=== PATIENT | male | born 1950 | race Caucasian/White ===

== ENCOUNTER 2018-03-08 17:19 | Emergency (ER) | payer MEDICARE, BC ==
--- NOTE | 2018-03-08 17:48 | ER Document Report ---
ED Medical Screen (RME) - General Chief Complaint: Rectal Bleeding Stated Complaint: BLOOD IN URINE Time Seen by Provider: 03/08/18 17:40 Mode of Arrival: Ambulatory Information source: Patient Notes: 67-year-old male presents with complaints of rectal bleeding. Patient notes he has a history of Crohn's disease notes by the bleeding was noted today it was more bright red on his pants but notes dark red as well I have greeted and performed a rapid initial assessment of this patient. A comprehensive ED assessment and evaluation of the patient, analysis of test results and completion of the medical decision making process will be conducted by additional ED providers. PHYSICAL EXAMINATION: GENERAL: Well-appearing, well-nourished and in no acute distress. HEAD: Atraumatic, normocephalic. EYES: Pupils equal round extraocular movements intact, conjunctiva are normal. ENT: Nares patent NECK: Normal range of motion LUNGS: No respiratory distress Musculoskeletal: Normal range of motion NEUROLOGICAL: Normal speech, normal gait. PSYCH: Normal mood, normal affect. SKIN: Warm, Dry, normal turgor, no rashes or lesions noted. TRAVEL OUTSIDE OF THE [place] IN LAST 30 DAYS: No - Related Data Allergies/Adverse Reactions: Penicillins Allergy (Verified 03/08/18 17:20) Past Medical History - Social History Chew tobacco use (# tins/day): No Frequency of alcohol use: None Drug Abuse: Prescription drugs Renal/ Medical History: Denies: Hx Peritoneal Dialysis Physical Exam - Vital signs Vitals: Temp Pulse Resp BP Pulse Ox 97.9 F 98 18 131/70 H 93 03/08/18 17:25 03/08/18 17:25 03/08/18 17:25 03/08/18 17:25 03/08/18 17:25 Course - Vital Signs Vital signs: Temp Pulse Resp BP Pulse Ox 97.9 F 98 18 131/70 H 93 03/08/18 17:25 03/08/18 17:25 03/08/18 17:25 03/08/18 17:25 03/08/18 17:25
[2018-03-08 18:34] LABS: ABSOLUTE EOSINOPHILS # (AUTO) 0.2 10^3/uL (0.0-0.6); ABSOLUTE LYMPHOCYTES (AUTO) 1.3 10^3/uL (0.5-4.7); ABSOLUTE MONOCYTES (AUTO) 1.1 10^3/uL (0.1-1.4); ABSOLUTE NEUT (AUTO) 8.6 10^3/uL (1.7-8.2); BASOPHILS % (AUTO) 0.3 % (0-2); EOSINOPHILS % (AUTO) 1.9 % (0-6); HEMATOCRIT 41.7 % (37.9-51.0); HEMOGLOBIN 14.1 g/dL (13.5-17.0); LYMPHOCYTES % (AUTO) 11.4 % (13-45); MEAN CORPUSCULAR HEMOGLOBIN 31.9 pg (27.0-33.4); MEAN CORPUSCULAR HGB CONC 33.8 g/dL (32.0-36.0); MEAN CORPUSCULAR VOLUME 94 fl (80-97); MONOCYTES % (AUTO) 9.4 % (3-13); PLATELET COUNT 207 10^3/uL (150-450); RED BLOOD COUNT 4.42 10^6/uL (4.35-5.55); RED CELL DISTRIBUTION WIDTH 13.8 % (11.5-14.0); TOTAL CELLS COUNTED % (AUTO) 100 %; WHITE BLOOD COUNT 11.2 10^3/uL (4.0-10.5)
[2018-03-08 18:49] LABS: ALANINE AMINOTRANSFERASE 48 U/L (21-72); ALBUMIN 3.7 g/dL (3.5-5.0); ALKALINE PHOSPHATASE 66 U/L (38-126); ANION GAP 11 (5-19); ASPARTATE AMINO TRANSFERASE 48 U/L (17-59); BILIRUBIN,DIRECT 0.3 mg/dL (0.0-0.4); BILIRUBIN,TOTAL 0.5 mg/dL (0.2-1.3); BLOOD UREA NITROGEN 25 mg/dL (7-20); CALCIUM 9.8 mg/dL (8.4-10.2); CARBON DIOXIDE 29 mmol/L (22-30); CHLORIDE 103 mmol/L (98-107); GLUCOSE 100 mg/dL (75-110); SODIUM 142.6 mmol/L (137-145); TOTAL PROTEIN 6.7 g/dL (6.3-8.2)
--- NOTE | 2018-03-08 19:03 | ER Document Report ---
ED General - General Chief Complaint: Rectal Bleeding Stated Complaint: BLOOD IN URINE Time Seen by Provider: 03/08/18 17:40 Mode of Arrival: Ambulatory Notes: Patient is a 67-year-old male with a past medical history of hypertension, hyperlipidemia, and a reported history of Crohn's disease although not on any active therapy, uncertain of his last colonoscopy who presents with concerns of a bright red bloody bowel movement. Patient states that he had blood come out of his rectum and apparently saturated through his underwear into his pants. He states that this happened earlier today and has not recurred since that time. He states he has had rectal bleeding or currently in the past but is uncertain whether or not he has had such a severe case in the past. He denies any form of anticoagulation use. He states he is currently living here after moving but has not yet established a local primary doctor or GI physician. He denies any abdominal pain, ongoing rectal bleeding, nausea, vomiting, hematemesis, lightheadedness or syncope. He has not noted that anything seemed to improve or worsen his symptoms and they are present. At the time of my exam he denies any ongoing symptoms and states he overall feels quite well. TRAVEL OUTSIDE OF THE [place] IN LAST 30 DAYS: No - Related Data Allergies/Adverse Reactions: Penicillins Allergy (Verified 03/08/18 17:20) Past Medical History - General Information source: Patient - Social History Smoking Status: Former Smoker Chew tobacco use (# tins/day): No Frequency of alcohol use: None Drug Abuse: Prescription drugs Lives with: Alone Family History: Reviewed & Not Pertinent Patient has suicidal ideation: No Patient has homicidal ideation: No Renal/ Medical History: Denies: Hx Peritoneal Dialysis Review of Systems - Review of Systems Notes: Constitutional: Negative for fever. HENT: Negative for sore throat. Eyes: Negative for visual changes. Cardiovascular: Negative for chest pain. Respiratory: Negative for shortness of breath. Gastrointestinal: Negative for abdominal pain, vomiting or diarrhea. Positive for rectal bleeding Genitourinary: Negative for dysuria. Musculoskeletal: Negative for back pain. Skin: Negative for rash. Neurological: Negative for headaches, weakness or numbness. 10 point ROS negative except as marked above and in HPI. Physical Exam - Vital signs Vitals: Temp Pulse Resp BP Pulse Ox 97.9 F 98 18 131/70 H 93 03/08/18 17:25 03/08/18 17:25 03/08/18 17:25 03/08/18 17:25 03/08/18 17:25 Interpretation: Normal Notes: PHYSICAL EXAMINATION: GENERAL: Well-appearing, well-nourished and in no acute distress. HEAD: Atraumatic, normocephalic. EYES: Pupils equal round and reactive to light, extraocular movements intact, sclera anicteric, conjunctiva are normal. ENT: nares patent, oropharynx clear without exudates. Moist mucous membranes. NECK: Normal range of motion, supple without lymphadenopathy LUNGS: Breath sounds clear to auscultation bilaterally and equal. No wheezes rales or rhonchi. HEART: Regular rate and rhythm without murmurs ABDOMEN: Soft, nontender, normoactive bowel sounds. No guarding, no rebound. No masses appreciated. Rectal: No gross blood, trace amount of brown stool EXTREMITIES: Normal range of motion, no pitting or edema. No cyanosis. NEUROLOGICAL: No focal neurological deficits. Moves all extremities spontaneously and on command. PSYCH: Normal mood, normal affect. SKIN: Warm, Dry, normal turgor, no rashes or lesions noted. Course - Re-evaluation Re-evalutation: 03/08/18 18:58 Patient presents with a complaint of having a bloody bowel movement earlier today stating there was blood staining the back of his blue jeans. He reports that he has a possible history of Crohn's disease but also states that he is uncertain of the last time he was seen by a GI doctor, does not take any medications for Crohn's disease, and is uncertain of the last time he had a colonoscopy. Patient is otherwise very well in appearance, normal heart rate, no evidence of hypotension. Borderline pulse oximetry although the patient does smoke. On examination the patient has no abdominal tenderness to any quadrant. He denies any abdominal pain. Rectal examination shows no evidence of blood. There is a small amount of brown stool on the tip of my finger but no evidence of melena or hematochezia. Laboratories show a normal hemoglobin without any evidence of anemia or acute bleeding. At this time point I do not suspect that the patient has a life-threatening GI bleed based on normal labs, vitals and absence of any blood on rectal examination. Moreover the patient notes that he has not had a recurrent bloody bowel movement since this morning. He does not take any form of anticoagulation. I have encouraged the patient to follow-up closely with his primary care physician and GI doctor for a colonoscopy ideally within the next 48 hours. We have reviewed that if he is to have any recurrent bloody bowel movements he needs to return to the emergency department immediately. We have also reviewed the signs that would indicate worsening bleeding even if you are not to be having additional bloody bowel movements. At this time will discharge with return precautions and follow -up recommendations. Verbal discharge instructions given a the bedside and opportunity for questions given. Medication warnings reviewed. Patient is in agreement with this plan and has verbalized understanding of return precautions and the need for primary care follow-up in the next 24-72 hours. - Vital Signs Vital signs: Temp Pulse Resp BP Pulse Ox 98.2 F 72 20 116/76 95 03/08/18 19:15 03/08/18 19:15 03/08/18 19:15 03/08/18 19:15 03/08/18 19:15 - Laboratory Result Diagrams: 03/08/18 18:03 03/08/18 18:03 Laboratory results interpreted by me: 03/08/18 03/08/18 18:03 18:03 WBC 11.2 H Lymphocytes % 11.4 L Absolute Neutrophils 8.6 H BUN 25 H Creatinine 1.29 H Est GFR (Non-Af Amer) 55 L Discharge - Discharge Clinical Impression: Blood in stool, History of Crohn's disease Condition: Good Disposition: HOME, SELF-CARE Additional Instructions: Your seen today for possible blood in your stool. Currently we do not see any blood in you stool on rectal examination. Your blood counts are normal. Your vitals are also reassuring. You need to follow-up with your general doctor and GI physician within the next 1-2 days to schedule a colonoscopy and have your labs reassessed. You should return to the emergency department immediately if you have recurrence of any additional bloody bowel movements, pass out or become lightheaded, vomit blood, have black stool, develop a fever of greater than 100.4F, developed severe abdominal pain, or have any other symptoms that are worrisome to you.
[2018-03-08 19:23] VITALS: BP 116/76
== END 2018-03-08 19:20 | disposition home or self-care (01) ==
LOC: ER 17:19
DX: K62.5 Hemorrhage of anus and rectum (principal); K50.90 Crohn's disease, unspecified, without complications; I10 Essential (primary) hypertension; E78.5 Hyperlipidemia, unspecified; Z87.891 Personal history of nicotine dependence
CPT/HCPCS: 36415; 80053; 85025; 86850; 86900; 86901; 99283

== ENCOUNTER 2018-03-10 10:23 | Emergency (ER) | payer MEDICARE, BC ==
--- NOTE | 2018-03-10 11:10 | ER Document Report ---
ED Medical Screen (RME) - General Chief Complaint: Bloody Stools Stated Complaint: BLOOD IN STOOL Time Seen by Provider: 03/10/18 11:04 Mode of Arrival: Ambulatory Information source: Patient Notes: 67-year-old male who was just seen recently for rectal bleeding presents with continued rectal bleeding. Appears patient was discharged with follow-up as not been able to get GI since the weekend Patient notes he had 2 episodes of rectal bleeding yesterday and has abdominal pain no vomiting I have greeted and performed a rapid initial assessment of this patient. A comprehensive ED assessment and evaluation of the patient, analysis of test results and completion of the medical decision making process will be conducted by additional ED providers. PHYSICAL EXAMINATION: GENERAL: Well-appearing, well-nourished and in no acute distress. HEAD: Atraumatic, normocephalic. EYES: Pupils equal round extraocular movements intact, conjunctiva are normal. ENT: Nares patent NECK: Normal range of motion LUNGS: No respiratory distress Musculoskeletal: Normal range of motion NEUROLOGICAL: Normal speech, normal gait. PSYCH: Normal mood, normal affect. SKIN: Warm, Dry, normal turgor, no rashes or lesions noted. TRAVEL OUTSIDE OF THE [place] IN LAST 30 DAYS: No - Related Data Allergies/Adverse Reactions: Penicillins Allergy (Verified 03/08/18 17:20) Past Medical History Renal/ Medical History: Denies: Hx Peritoneal Dialysis Physical Exam - Vital signs Vitals: Temp Pulse Resp BP Pulse Ox 97.9 F 84 18 135/65 H 95 03/10/18 10:34 03/10/18 10:34 03/10/18 10:34 03/10/18 10:34 03/10/18 10:34 Course - Vital Signs Vital signs: Temp Pulse Resp BP Pulse Ox 97.9 F 84 18 135/65 H 95 03/10/18 10:34 03/10/18 10:34 03/10/18 10:34 03/10/18 10:34 03/10/18 10:34
[2018-03-10 11:57] LABS: ABSOLUTE EOSINOPHILS # (AUTO) 0.2 10^3/uL (0.0-0.6); ABSOLUTE LYMPHOCYTES (AUTO) 1.4 10^3/uL (0.5-4.7); ABSOLUTE MONOCYTES (AUTO) 0.9 10^3/uL (0.1-1.4); ABSOLUTE NEUT (AUTO) 5.8 10^3/uL (1.7-8.2); BASOPHILS % (AUTO) 0.5 % (0-2); EOSINOPHILS % (AUTO) 2.5 % (0-6); HEMATOCRIT 41.8 % (37.9-51.0); HEMOGLOBIN 14.6 g/dL (13.5-17.0); LYMPHOCYTES % (AUTO) 16.8 % (13-45); MEAN CORPUSCULAR HEMOGLOBIN 32.9 pg (27.0-33.4); MEAN CORPUSCULAR VOLUME 94 fl (80-97); MONOCYTES % (AUTO) 11.1 % (3-13); PLATELET COUNT 231 10^3/uL (150-450); RED BLOOD COUNT 4.44 10^6/uL (4.35-5.55); RED CELL DISTRIBUTION WIDTH 13.8 % (11.5-14.0); SEGMENTED NEUTROPHILS % (AUTO) 69.1 % (42-78); TOTAL CELLS COUNTED % (AUTO) 100 %; WHITE BLOOD COUNT 8.5 10^3/uL (4.0-10.5)
[2018-03-10 12:15] LABS: ALANINE AMINOTRANSFERASE 43 U/L (21-72); ALBUMIN 3.5 g/dL (3.5-5.0); ALKALINE PHOSPHATASE 66 U/L (38-126); ANION GAP 12 (5-19); ASPARTATE AMINO TRANSFERASE 38 U/L (17-59); BILIRUBIN,DIRECT 0.2 mg/dL (0.0-0.4); BILIRUBIN,TOTAL 0.2 mg/dL (0.2-1.3); BLOOD UREA NITROGEN 30 mg/dL (7-20); CALCIUM 9.8 mg/dL (8.4-10.2); CARBON DIOXIDE 27 mmol/L (22-30); CHLORIDE 103 mmol/L (98-107); GLUCOSE 92 mg/dL (75-110); POTASSIUM 4.1 mmol/L (3.6-5.0); SODIUM 142.1 mmol/L (137-145); TOTAL PROTEIN 6.6 g/dL (6.3-8.2)
--- NOTE | 2018-03-10 13:32 | ER Document Report ---
ED General - General Chief Complaint: Bloody Stools Stated Complaint: BLOOD IN STOOL Time Seen by Provider: 03/10/18 11:04 Mode of Arrival: Ambulatory TRAVEL OUTSIDE OF THE [place] IN LAST 30 DAYS: No - HPI Patient complains to provider of: Blood in stool Notes: Patient coming in for second time in the last few days for bright red blood per rectum. Upon questioning patient patient seems to be of lower IQ and his story is somewhat convoluted stating that upon his last visit he had bright red blood per rectum 24 hours prior states that today he did have a bloody bowel movement night before this arrival however came to the ER from [place] to be checked out states he has a history of Crohn's disease however is never been confirmed by GI. Patient is on medication for seizure disorder he is already on Protonix to as well. Patient denies any change his diet. Patient denies being able to follow-up with a GI physician or his regular physician as that they are in [place]. Patient denies having a physician here in [place]. Otherwise resting comfortably upon my evaluation denies fever chills nausea vomiting diarrhea denies blood thinning medication denies excessive Motrin use - Related Data Allergies/Adverse Reactions: Penicillins Allergy (Verified 03/08/18 17:20) Past Medical History - General Information source: Patient - Social History Smoking Status: Former Smoker Chew tobacco use (# tins/day): No Frequency of alcohol use: None Drug Abuse: None Family History: Reviewed & Not Pertinent Patient has suicidal ideation: No Patient has homicidal ideation: No - Past Medical History Cardiac Medical History: Reports: Hx Congestive Heart Failure, Hx Hypertension Neurological Medical History: Reports: Hx Seizures Renal/ Medical History: Denies: Hx Peritoneal Dialysis Physical Exam - Vital signs Vitals: Temp Pulse Resp BP Pulse Ox 97.9 F 84 18 135/65 H 95 03/10/18 10:34 03/10/18 10:34 03/10/18 10:34 03/10/18 10:34 03/10/18 10:34 Interpretation: Normal - General General appearance: Appears well, Alert - HEENT Head: Normocephalic, Atraumatic Eyes: Normal Pupils: PERRL - Respiratory Respiratory status: No respiratory distress Chest status: Nontender Breath sounds: Normal Chest palpation: Normal - Cardiovascular Rhythm: Regular Heart sounds: Normal auscultation Murmur: No - Abdominal Inspection: Normal Distension: No distension Bowel sounds: Normal Tenderness: Nontender Organomegaly: No organomegaly - Rectal Notes: Light brown stool on rectal examination no signs of gross blood - Back Back: Normal, Nontender - Extremities General upper extremity: Normal inspection, Nontender, Normal color, Normal ROM , Normal temperature General lower extremity: Normal inspection, Nontender, Normal color, Normal ROM , Normal temperature, Normal weight bearing. No: Ladi's sign - Neurological Neuro grossly intact: Yes Cognition: Normal Orientation: AAOx4 [place] Coma Scale Eye Opening: Spontaneous [place] Coma Scale Verbal: Oriented Jess Coma Scale Motor: Obeys Commands Jess Coma Scale Total: 15 Speech: Normal Motor strength normal: LUE, RUE, LLE, RLE Sensory: Normal - Psychological Associated symptoms: Normal affect, Normal mood - Skin Skin Temperature: Warm Skin Moisture: Dry Skin Color: Normal Course - Re-evaluation Re-evalutation: 03/10/18 15:15 Patient's hemoglobin has increased since his last visit. Patient has light brown stool on rectal examination no hemorrhoids were seen or palpated. At this time patient has no signs of life-threatening bleeds. Patient is not on any anticoagulant medication. I did encourage patient to follow-up with his doctor will also give the patient information to our social science research assistant to call him tomorrow to to establish a follow-up here in [place]. Patient states understanding patient is to continue all of his home medications avoiding NSAIDs and will be discharged home - Vital Signs Vital signs: Temp Pulse Resp BP Pulse Ox 97.7 F 77 16 110/70 98 03/10/18 13:48 03/10/18 13:48 03/10/18 13:48 03/10/18 13:48 03/10/18 13:48 - Laboratory Result Diagrams: 03/10/18 11:24 03/10/18 11:24 Laboratory results interpreted by me: 03/10/18 11:24 BUN 30 H Est GFR (Non-Af Amer) 58 L Discharge - Discharge Clinical Impression: History of Crohn's disease, Blood in stool per history Condition: Good Disposition: HOME, SELF-CARE Instructions: Gastroenterology, Rectal Bleeding, Unclear Cause ([facility]) Additional Instructions: Your laboratory studies today show that your hemoglobin has increased since last time you have been here in the ER. Your rectal exam today did not reveal any signs of blood. Her vital signs are otherwise stable. It is very important that you follow-up with a GI specialist. I would highly recommend to call your physician or wait for her phone call tomorrow is that I will have our social science research assistant contact you during regular business hours to see about establishing care here in [facility] and also establish you follow- up with a plaster model and mold maker or GI specialist. Please continue all your home medications as prescribed. Please avoid any anti-inflammatory medication such as Motrin or Naprosyn Aleve. Please avoid any excessive alcohol intake. Return to ER for any concerns
[2018-03-10 13:50] VITALS: BP 110/70
== END 2018-03-10 13:50 | disposition home or self-care (01) ==
LOC: ER 10:23
DX: K50.90 Crohn's disease, unspecified, without complications (principal); K92.1 Melena; I50.9 Heart failure, unspecified; I11.0 Hypertensive heart disease with heart failure; Z88.0 Allergy status to penicillin
CPT/HCPCS: 36415; 80053; 85025; 99283

== ENCOUNTER 2019-08-04 11:39 | Observation (INO) | payer MEDICARE, BC ==
--- NOTE | 2019-08-04 12:22 | ER Document Report ---
ED Medical Screen (RME) - General Stated Complaint: RIGHT FOOT PAIN Time Seen by Provider: 08/04/19 12:17 Mode of Arrival: Medic Information source: Patient Notes: Patient presents with right foot pain swelling and erythema for the past 2 days. Patient states that he recently was [place] the beach although denies knowingly cutting his foot. Patient denies any fever. hx: Hypertension, CVA, seizures I have greeted and performed a rapid initial assessment of this patient. A comprehensive ED assessment and evaluation of the patient, analysis of test results and completion of the medical decision making process will be conducted by additional ED providers. TRAVEL OUTSIDE OF THE [place] IN LAST 30 DAYS: No - Related Data Allergies/Adverse Reactions: Penicillins Allergy (Verified 03/08/18 17:20) Past Medical History - Past Medical History Cardiac Medical History: Reports: Hx Congestive Heart Failure, Hx Hypertension Neurological Medical History: Reports: Hx Seizures Renal/ Medical History: Denies: Hx Peritoneal Dialysis Physical Exam - General Notes: Right bartender server, erythematous swollen, right second toe more swollen and erythematous than other toes.
[2019-08-04 12:40] LABS: ABSOLUTE BASOPHILS # (AUTO) 0.1 10^3/uL (0.0-0.2); ABSOLUTE MONOCYTES (AUTO) 1.8 10^3/uL (0.1-1.4); BASOPHILS % (AUTO) 0.4 % (0-2); EOSINOPHILS % (AUTO) 0.4 % (0-6); HEMATOCRIT 50.9 % (37.9-51.0); LYMPHOCYTES % (AUTO) 14.3 % (13-45); MEAN CORPUSCULAR HEMOGLOBIN 32.1 pg (27.0-33.4); MEAN CORPUSCULAR HGB CONC 33.4 g/dL (32.0-36.0); MEAN CORPUSCULAR VOLUME 96 fl (80-97); MONOCYTES % (AUTO) 12.8 % (3-13); PLATELET COUNT 276 10^3/uL (150-450); RED BLOOD COUNT 5.31 10^6/uL (4.35-5.55); RED CELL DISTRIBUTION WIDTH 13.7 % (11.5-14.0); SEGMENTED NEUTROPHILS % (AUTO) 72.1 % (42-78); TOTAL CELLS COUNTED % (AUTO) 100 %; WHITE BLOOD COUNT 13.8 10^3/uL (4.0-10.5)
[2019-08-04 13:11] LABS: ALBUMIN 4.1 g/dL (3.5-5.0); ALKALINE PHOSPHATASE 65 U/L (38-126); ANION GAP 13 (5-19); ASPARTATE AMINO TRANSFERASE 43 U/L (17-59); BILIRUBIN,DIRECT 0.2 mg/dL (0.0-0.4); BILIRUBIN,TOTAL 1.1 mg/dL (0.2-1.3); BLOOD UREA NITROGEN 23 mg/dL (7-20); CALCIUM 10.1 mg/dL (8.4-10.2); CARBON DIOXIDE 29 mmol/L (22-30); CHLORIDE 100 mmol/L (98-107); GLUCOSE 99 mg/dL (75-110); POTASSIUM 4.5 mmol/L (3.6-5.0); TOTAL PROTEIN 7.8 g/dL (6.3-8.2); URIC ACID 8.8 mg/dL (3.5-8.5)
--- NOTE | 2019-08-04 13:19 | RADIOLOGY REPORT (SQ) ---
EXAM DESCRIPTION: FOOT RIGHT COMPLETE COMPLETED DATE/TIME: 08/04/2019 1:03 pm REASON FOR STUDY: r foot pain/swelling COMPARISON: None. NUMBER OF VIEWS: Three views. TECHNIQUE: AP, lateral and oblique radiographic images acquired of the right foot. LIMITATIONS: None. FINDINGS: MINERALIZATION: Normal. BONES: No acute fracture or dislocation. JOINTS: The tarsometatarsal alignment is preserved. SOFT TISSUES: There is diffuse soft tissue swelling along the dorsal aspect of the midfoot. There is a thin 4.5 mm radiopaque foreign body that projects dorsal to the 3rd proximal phalanx. OTHER: No other significant finding. IMPRESSION: 1. Thin 4.5 mm radiopaque foreign body that projects dorsal to the 3rd proximal phalanx. 2. Soft tissue swelling along the dorsal aspect of the midfoot. COMMENT: This report was called to FREDI DAN NP at13:11 on 08/04/2019. TECHNICAL DOCUMENTATION: JOB ID: [id number] [employer]- All Rights Reserved Reading location - IP/workstation name: [email or web address]
[2019-08-04] MEDS ORDERED: CEFEPIME INJ 1 GM VIAL IV ONE (17:18)
[2019-08-04] MEDS ORDERED: NORMAL SALINE IV ONE (17:18)
[2019-08-04] MEDS ORDERED: VANCOMYCIN HCL INJ 1000 MG VIAL IV ONE (17:18)
--- NOTE | 2019-08-04 17:27 | ER Document Report ---
ED Extremity Problem, Lower - General Chief Complaint: Foot Pain Stated Complaint: RIGHT FOOT PAIN Time Seen by Provider: 08/04/19 12:17 Mode of Arrival: Medic Information source: Patient TRAVEL OUTSIDE OF THE [place] IN LAST 30 DAYS: No - HPI Notes: Patient is brought in due to right foot pain. He states for 2 to 3 days his right foot has been very tender. He states the pain radiates up the right leg. It is constant. It is worse with movement and better with rest. It is moderate to severe in intensity. It is a burning sensation. He denies any known injury to this foot or leg. He states he does walk on the beach barefoot every day however. Patient is somewhat of a difficult historian. He denies any other injuries or problems. He denies any nausea vomiting diarrhea. No fevers. - Related Data Allergies/Adverse Reactions: Penicillins Allergy (Verified 03/08/18 17:20) Past Medical History - General Information source: Patient - Social History Smoking Status: Never Smoker Frequency of alcohol use: None Drug Abuse: None Family History: Reviewed & Not Pertinent Patient has suicidal ideation: No Patient has homicidal ideation: No - Past Medical History Cardiac Medical History: Reports: Hx Congestive Heart Failure, Hx Hypertension Neurological Medical History: Reports: Hx Seizures Renal/ Medical History: Denies: Hx Peritoneal Dialysis Review of Systems - Review of Systems Constitutional: denies: Chills, Fever Cardiovascular: denies: Chest pain, Palpitations Respiratory: denies: Cough, Short of breath -: Yes All other systems reviewed and negative Physical Exam - Vital signs Vitals: Temp Pulse Resp BP Pulse Ox 97.7 F 85 17 126/78 H 98 08/04/19 14:08 08/04/19 14:08 08/04/19 14:08 08/04/19 14:08 08/04/19 14:08 Interpretation: Normal - General General appearance: Appears well, Alert - HEENT Head: Normocephalic, Atraumatic Eyes: Normal Pupils: PERRL - Respiratory Respiratory status: No respiratory distress Chest status: Nontender Breath sounds: Normal Chest palpation: Normal - Cardiovascular Rhythm: Regular Heart sounds: Normal auscultation Murmur: No - Abdominal Inspection: Normal Distension: No distension Bowel sounds: Normal Tenderness: Nontender Organomegaly: No organomegaly - Back Back: Normal, Nontender - Extremities General upper extremity: Normal inspection, Nontender, Normal color, Normal ROM, Normal temperature General lower extremity: Other - Left lower extremity is unremarkable. Right lower extremity shows significant swelling erythema and some mild induration from approximately just superior to the ankle all the way through the toes. Specifically the right second toe is more erythematous and swollen than the other toes. However the erythema and swelling extends diffusely about the foot. The entire foot is tender. Patient's greatest degree of tenderness though seems to be at the base of the second and third toes. There is no wounds appreciated on inspection. - Neurological Neuro grossly intact: Yes Cognition: Normal Orientation: AAOx4 [place] Coma Scale Eye Opening: Spontaneous [place] Coma Scale Verbal: Oriented Jess Coma Scale Motor: Obeys Commands Jess Coma Scale Total: 15 Speech: Normal Motor strength normal: LUE, RUE, LLE, RLE Sensory: Normal - Psychological Associated symptoms: Normal affect, Normal mood - Skin Skin Temperature: Warm Skin Moisture: Dry Skin Color: Normal Course - Re-evaluation Re-evalutation: 08/04/19 17:25 Patient presents with an obvious cellulitic right foot. He does have a foreign body seen on x-ray. There is no obvious injury. This foreign body is not going to be amenable to removal in the emergency department. This is because there is no overlying wound, the foreign body is small, and it appears to be located deep within the tissues. I have spoken to the hospitalist who will admit the patient. Have also spoken to the surgeon who plans on taking the patient to the operating room. Patient states that he last ate at approximately 6 AM this morning. - Vital Signs Vital signs: Temp Pulse Resp BP Pulse Ox 97.7 F 85 17 126/78 H 98 08/04/19 14:08 08/04/19 14:08 08/04/19 14:08 08/04/19 14:08 08/04/19 14:08 - Laboratory Result Diagrams: 08/04/19 11:15 08/04/19 11:15 Laboratory results interpreted by me: 08/04/19 08/04/19 11:15 11:15 WBC 13.8 H Absolute Neuts (auto) 10.0 H Absolute Monos (auto) 1.8 H BUN 23 H Creatinine 1.37 H Est GFR ([facility]DRD) Non-Af 52 L Uric Acid 8.8 H - Diagnostic Test Radiology reviewed: Image reviewed, Reports reviewed Discharge - Discharge Clinical Impression: Cellulitis of right foot Foreign body in right foot Qualifiers: Encounter type: initial encounter Qualified Code(s): S90.851A - Superficial foreign body, right foot, initial encounter Condition: Stable Disposition: ADMITTED INPATIENT Admitting Provider: Yee (Hospitalist) Unit Admitted: Medical Floor
[2019-08-04 17:37] LABS: INTERNATIONAL RATION (INR) 0.99; PROTHROMBIN TIME 13.1 SEC (11.4-15.4)
--- NOTE | 2019-08-04 17:55 | PDOC H&P ---
History of Present Illness Admission Date/PCP: 08/04/19 17:33 Patient complains of: right leg swelling History of Present Illness: SHARAD EVANS is a 68 year old male with a past medical history of hypertension, seizure disorder, Crohn's disease not on therapy, hyperlipidemia, and HERMAN on CPAP who presented with right leg and right foot swelling. Patient says that he woke up 3 days ago and noticed swelling and redness on his right foot. He says that this has progressed and he has noted that his right leg is slightly more swollen than his left. He complains of minimal tenderness on the right foot. He does report that he has noticed the erythema on the d istal part of the right foot is more prominent in the past 2 days. He denies fever or chills. Foot x-ray in the ER shows a retained foreign body on the right foot. Surgery was consulted in the ER. No open wounds or lesions noted. Patient denies any recent trauma or insect bite or instrumentation on the right foot. Past Medical History Cardiac Medical History: Reports: Congestive Heart Failure, Hypertension Neurological Medical History: Reports: Seizures Social History Smoking Status: Never Smoker Family History Family History: Reviewed & Not Pertinent Parental Family History Reviewed: Yes - No premature CAD Children Family History Reviewed: No Sibling(s) Family History Reviewed.: No Medication/Allergy Allergies/Adverse Reactions: Penicillins Allergy (Verified 03/08/18 17:20) Review of Systems All systems: reviewed and no additional remarkable complaints except as stated - As mentioned in HPI Physical Exam Vital Signs: Temp Pulse Resp BP Pulse Ox 97.7 F 85 17 126/78 H 98 08/04/19 14:08 08/04/19 14:08 08/04/19 14:08 08/04/19 14:08 08/04/19 14:08 Intake & Output 08/03/19 08/04/19 08/05/19 06:59 06:59 06:59 Weight 201 lb General appearance: PRESENT: no acute distress, well-developed, well-nourished Head exam: PRESENT: atraumatic, normocephalic Eye exam: PRESENT: conjunctiva pink, EOMI, PERRLA. ABSENT: scleral icterus Ear exam: PRESENT: normal external ear exam Mouth exam: PRESENT: moist, tongue midline Neck exam: ABSENT: carotid bruit, JVD, lymphadenopathy, thyromegaly Respiratory exam: PRESENT: clear to auscultation ron. ABSENT: rales, rhonchi, wheezes Cardiovascular exam: PRESENT: RRR. ABSENT: diastolic murmur, rubs, systolic murmur Pulses: PRESENT: normal dorsalis pedis pul GI/Abdominal exam: PRESENT: normal bowel sounds, soft. ABSENT: distended, guarding, mass, organolmegaly, rebound, tenderness Rectal exam: PRESENT: deferred Extremities exam: PRESENT: other - There is some mild tenderness on the distal part of the right foot, right leg is also more swollen than the left Neurological exam: PRESENT: alert, awake, oriented to person, oriented to place, oriented to time, oriented to situation, CN II-XII grossly intact. ABSENT: motor sensory deficit Results Laboratory Results: 08/04/19 11:15 08/04/19 11:15 08/04/19 08/04/19 11:15 11:15 WBC 13.8 H RBC 5.31 Hgb 17.0 Hct 50.9 MCV 96 MCH 32.1 MCHC 33.4 RDW 13.7 Plt Count 276 Seg Neutrophils % 72.1 Sodium 141.6 Potassium 4.5 Chloride 100 Carbon Dioxide 29 Anion Gap 13 BUN 23 H Creatinine 1.37 H Est GFR ( Amer) > 60 Glucose 99 Uric Acid 8.8 H Calcium 10.1 Total Bilirubin 1.1 AST 43 Alkaline Phosphatase 65 Total Protein 7.8 Albumin 4.1 Impressions: Foot X-Ray 08/04/19 12:21 IMPRESSION: 1. Thin 4.5 mm radiopaque foreign body that projects dorsal to the 3rd proximal phalanx. 2. Soft tissue swelling along the dorsal aspect of the midfoot. Assessment and Plan - Diagnosis (1) Cellulitis of right lower extremity Is this a current diagnosis for this admission?: Yes Plan: We will continue vancomycin and cefepime. Clarified patient's allergy to penicillin. He says that he did not have any rash or shortness of breath but was told that penicillin made him confused. Will also order a right lower extremity ultrasound. (2) Seizure disorder Is this a current diagnosis for this admission?: Yes Plan: Resume home meds once verified. (3) Hypertension Is this a current diagnosis for this admission?: Yes Plan: Resume home meds once verified. (4) Hypothyroidism Is this a current diagnosis for this admission?: Yes Plan: Resume home meds once verified. (5) Foreign body in right foot Qualifiers: Encounter type: initial encounter Qualified Code(s): S90.851A - Superficial foreign body, right foot, initial encounter Is this a current diagnosis for this admission?: Yes - Time Time Spent with patient: 25-34 minutes
--- NOTE | 2019-08-04 17:57 | ADVANCED CARE ---
- Diagnosis (1) Cellulitis of right lower extremity Diagnosis Current: Yes (2) Hypertension Diagnosis Current: Yes (3) Hypothyroidism Diagnosis Current: Yes (4) Seizure disorder Diagnosis Current: Yes Resuscitation Status: Full Code Discussion: Patient says that he prefers to receive chest compressions, defibrillation or mechanical ventilation. However he does verbalize he does not want to be on a mechanical ventilator for a long time. He says that he has 2 brothers but prefers that his first cousin, Constance Shipman be his surrogate medical decision maker.
[2019-08-04] MEDS ORDERED: VANCOMYCIN HCL 0 MG in DEXTROSE 5%-WATER 250 ML IV NR (18:00)
[2019-08-04 18:13] LABS: VENOUS BLOOD BASE EXCESS 4.9 mmol/L; VENOUS BLOOD HCO3 31.9 mmol/L (20-32); VENOUS BLOOD PCO2 53.4 mmHg (35-63); VENOUS BLOOD PH 7.39 (7.30-7.42)
--- NOTE | 2019-08-04 18:24 | RADIOLOGY REPORT (SQ) ---
EXAM DESCRIPTION: CHEST SINGLE VIEW COMPLETED DATE/TIME: 08/04/2019 5:39 pm REASON FOR STUDY: pre op COMPARISON: None. EXAM PARAMETERS: NUMBER OF VIEWS: One view. TECHNIQUE: Single frontal radiographic view of the chest acquired. RADIATION DOSE: NA LIMITATIONS: None. FINDINGS: LUNGS AND PLEURA: No opacities, masses or pneumothorax. No pleural effusion. MEDIASTINUM AND HILAR STRUCTURES: No masses. Contour normal. HEART AND VASCULAR STRUCTURES: Heart normal in size. Normal vasculature. BONES: No acute findings. HARDWARE: None in the chest. OTHER: No other significant finding. IMPRESSION: NO ACUTE RADIOGRAPHIC FINDING IN THE CHEST. TECHNICAL DOCUMENTATION: JOB ID: [id number] [employer]- All Rights Reserved Reading location - IP/workstation name: [email or web address]
[2019-08-04] MEDS ORDERED: DEXTROSE 50%-WATER 25 GM/50 ML DISP.SYRIN IV PRN ×2 (18:31)
[2019-08-04] MEDS ORDERED: DEXTROSE 40% GEL 15 GM TUBE PO PRN ×2 (18:31)
[2019-08-04] MEDS ORDERED: GLUCAGON,HUMAN RECOMB 1 MG INJ SUBCUT PRN (18:31)
--- NOTE | 2019-08-04 19:12 | PDOC CONSULTATION ---
Consultation Consult Date: 08/04/19 Attending physician:: TAMMY GONSALES Provider Consulted: VAZQUEZ MAXWELL Consult reason:: Infection right foot History of Present Illness Admission Date/PCP: 08/04/19 17:33 Patient complains of: Right foot pain History of Present Illness: SHARAD EVANS is a 68 year old male Presents the emergency department via ground rescue complaining of a several day history of right foot pain, swelling, discoloration. Patient denies history of diabetes. He denies history of direct trauma. He was evaluated in the emergency department where he was found to have a swollen, hot, erythematous puffy right foot. X-ray revealed a 4.5 mm linear density dorsal aspect over the third metatarsal-proximal phalangeal joint space. Patient was provided a complete dinner which she was eating at the time of this evaluation. Surgery was consulted, and patient was advised admission to the hospitalist service. Past Medical History Cardiac Medical History: Reports: Congestive Heart Failure, Hypertension Neurological Medical History: Reports: Seizures Past Surgical History Past Surgical History: Reports: None Social History Information Source: Patient Smoking Status: Never Smoker Electronic Cigarette use?: No Frequency of Alcohol Use: None Hx Recreational Drug Use: No - Advance Directive Resuscitation Status: Full Code Family History Family History: None, Reviewed & Not Pertinent Parental Family History Reviewed: No Children Family History Reviewed: No Sibling(s) Family History Reviewed.: No Medication/Allergy Allergies/Adverse Reactions: Penicillins Allergy (Verified 03/08/18 17:20) Review of Systems Constitutional: PRESENT: as per HPI Eyes: ABSENT: visual disturbances Ears: ABSENT: hearing changes Respiratory: PRESENT: as per HPI Gastrointestinal: ABSENT: abdominal pain, constipation, diarrhea, hematemesis, hematochezia, nausea, vomiting Genitourinary: ABSENT: dysuria, hematuria Musculoskeletal: PRESENT: other - Patient denies use of assist device Endocrine: ABSENT: cold intolerance, heat intolerance, polydipsia, polyuria Hematologic/Lymphatic: ABSENT: easy bleeding, easy bruising Physical Exam Vital Signs: Temp Pulse Resp BP Pulse Ox 97.3 F 87 16 123/84 96 08/04/19 18:10 08/04/19 18:10 08/04/19 18:10 08/04/19 18:10 08/04/19 18:10 Intake & Output 08/03/19 08/04/19 08/05/19 06:59 06:59 06:59 Weight 91.172 kg General appearance: PRESENT: no acute distress, other - Eating an entire dinner in our presence Head exam: PRESENT: normocephalic Eye exam: PRESENT: EOMI Mouth exam: PRESENT: dry mucosa Neck exam: PRESENT: full ROM Respiratory exam: PRESENT: clear to auscultation ron Cardiovascular exam: PRESENT: RRR Pulses: PRESENT: normal carotid pulses, normal radial pulses, normal femoral pulses, +2 pedal pulses bilateral, other - Palpable dorsalis pedis and posterior tibial pulses Rectal exam: PRESENT: deferred Extremities exam: PRESENT: other - Right foot and lower leg swollen, warm, erythematous particularly the dorsum of the foot, with emphasis on the right second toe; no entrance wound; patient point tender over the third meta tarsal Musculoskeletal exam: PRESENT: other - Patient avoiding right foot, using crutches Neurological exam: PRESENT: oriented to person, oriented to place, oriented to time, oriented to situation Psychiatric exam: PRESENT: appropriate affect Results Laboratory Results: 08/04/19 11:15 08/04/19 11:15 08/04/19 08/04/19 08/04/19 11:15 11:15 17:50 WBC 13.8 H RBC 5.31 Hgb 17.0 Hct 50.9 MCV 96 MCH 32.1 MCHC 33.4 RDW 13.7 Plt Count 276 Seg Neutrophils % 72.1 VBG pH VBG pCO2 VBG HCO3 VBG Base Excess Sodium 141.6 Potassium 4.5 Chloride 100 Carbon Dioxide 29 Anion Gap 13 BUN 23 H Creatinine 1.37 H Est GFR ( Amer) > 60 Glucose 99 Lactic Acid 1.0 Uric Acid 8.8 H Calcium 10.1 Total Bilirubin 1.1 AST 43 Alkaline Phosphatase 65 Total Protein 7.8 Albumin 4.1 08/04/19 17:50 WBC RBC Hgb Hct MCV MCH MCHC RDW Plt Count Seg Neutrophils % VBG pH 7.39 VBG pCO2 53.4 VBG HCO3 31.9 VBG Base Excess 4.9 Sodium Potassium Chloride Carbon Dioxide Anion Gap BUN Creatinine Est GFR ( Amer) Glucose Lactic Acid Uric Acid Calcium Total Bilirubin AST Alkaline Phosphatase Total Protein Albumin Impressions: Foot X-Ray 08/04/19 12:21 IMPRESSION: 1. Thin 4.5 mm radiopaque foreign body that projects dorsal to the 3rd proximal phalanx. 2. Soft tissue swelling along the dorsal aspect of the midfoot. Chest X-Ray 08/04/19 17:19 IMPRESSION: NO ACUTE RADIOGRAPHIC FINDING IN THE CHEST. Assessment & Plan - Diagnosis (1) Cellulitis of right foot Is this a current diagnosis for this admission?: Yes Plan: Impression: Septic right foot based on clinical manifestations of cellulitis, leukocytosis; highly suspicious for foreign body reaction at the right third metatarsal-possible phalangeal joint; patient has eaten dinner at the time of this examination. Recommendations: 1. Agree with IV antibiotics, leg elevation and reassessment in 8 to 12 hours. 2. We will make patient n.p.o. after midnight for possible soft tissue exploration tomorrow if there is no clinical improvement. 3. I discussed the above with Dr. Bartlett, hospitalist of the evening. (2) Foreign body in right foot Qualifiers: Encounter type: initial encounter Qualified Code(s): S90.851A - Superficial foreign body, right foot, initial encounter Is this a current diagnosis for this admission?: Yes (3) Hypertension Is this a current diagnosis for this admission?: Yes (4) Hypothyroidism Is this a current diagnosis for this admission?: Yes (5) Seizure disorder Is this a current diagnosis for this admission?: Yes - Time Time Spent: 30 to 50 Minutes Smoking Cessation Education: 3 to 10 minutes Medications reviewed and adjusted accordingly: Yes Anticipated discharge: Home - Inpatient Certification Based on my medical assessment, after consideration of the patient's comorbidities, presenting symptoms, or acuity I expect that the services needed warrant INPATIENT care.: Yes I certify that my determination is in accordance with my understanding of Medicare's requirements for reasonable and necessary INPATIENT services [42 CFR 412.3e].: Yes Medical Necessity: Need for Pain Control, Need for IV Antibiotics
--- NOTE | 2019-08-04 21:07 | RADIOLOGY REPORT (SQ) ---
EXAM DESCRIPTION: CLINICAL HISTORY: 68 years Male, right LE swelling, r/o DVT COMPARISON: None. FINDINGS: Right common femoral, femoral, popliteal, posterior tibial and greater saphenous veins are patent. Left common femoral veins also patent. IMPRESSION: No evidence for DVT in the right lower extremity.
--- NOTE | 2019-08-04 21:45 | EKG REPORT ---
SEVERITY:- ABNORMAL ECG - [id number] POOR R WAVE PROGRESSION ANTERIOR LEADS. BORDERLINE RIGHT AXIS DEVIATION : Confirmed by: Dejon Wallace MD 04-Aug-2019 21:45:19
[2019-08-04] MEDS: HEPARIN SOD (PORCINE) 5,000 UNIT/ML 1 ML VIAL SUBCUT SCH (22:46)
[2019-08-04] MEDS: CEFEPIME 1 GM/D5W RTU 1 GM/50 ML RTUPB IV SCH (22:47)
[2019-08-05] MEDS: KETOROLAC TROMETHAMINE INJ/PF 30 MG/1 ML SDV IV PRN (01:43)
[2019-08-05] MEDS: LEVOTHYROXINE SODIUM 0.05 MG TABLET PO SCH (06:02)
[2019-08-05] MEDS: VANCOMYCIN HCL 750 MG in DEXTROSE 5%-WATER 250 ML IV SCH ×2 (06:05→17:04)
[2019-08-05] MEDS: CEFEPIME 1 GM/D5W RTU 1 GM/50 ML RTUPB IV SCH ×2 (09:25→21:59)
[2019-08-05] MEDS: ATORVASTATIN CALCIUM 40 MG TABLET PO SCH (09:26)
[2019-08-05] MEDS: HYDROCHLOROTHIAZIDE 25 MG TABLET PO SCH ×2 (09:26→09:35)
[2019-08-05] MEDS: LOSARTAN POTASSIUM 50 MG TABLET PO SCH ×2 (09:26→09:35)
[2019-08-05] MEDS: AMLODIPINE BESYLATE 10 MG TABLET PO SCH (09:26)
[2019-08-05] MEDS: MODAFINIL 100 MG TABLET PO SCH (09:26)
[2019-08-05] MEDS: ASPIRIN 325 MG TABLET PO SCH (09:26)
[2019-08-05] MEDS: HEPARIN SOD (PORCINE) 5,000 UNIT/ML 1 ML VIAL SUBCUT SCH ×2 (09:27→21:53)
[2019-08-05] MEDS: DIVALPROEX SODIUM 250 MG TAB.SR.24H PO SCH ×2 (09:27→21:59)
[2019-08-05] MEDS: OMEGA-3 ACID ETHYL ESTERS 1 GM CAPSULE PO SCH (09:27)
[2019-08-05] MEDS ORDERED: VITAMIN E 100 UNIT PO SCH (10:00)
[2019-08-05] MEDS: PANTOPRAZOLE SODIUM 20 MG TABLET.DR PO SCH (12:18)
--- NOTE | 2019-08-05 13:01 | PDOC PROGRESS REPORT ---
Subjective Progress Note for:: 08/05/19 Subjective:: SHARAD EVANS is a 68 year old male with a past medical history of hypertension, seizure disorder, Crohn's disease not on therapy, hyperlipidemia, and HERMAN on CPAP who presented with right leg and right foot swelling. Patient says that he woke up 3 days ago and noticed swelling and redness on his right foot. He says that this has progressed and he has noted that his right leg is slightly more swollen than his left. He complains of minimal tenderness on the right foot. He does report that he has noticed the erythema on the distal part of the right foot is more prominent in the past 2 days. He denies fever or chills. Foot x-ray in the ER shows a retained foreign body on the right foot. Surgery was consulted in the ER. No open wounds or lesions noted. Patient denies any recent trauma or insect bite or instrumentation on the right foot. 08/05/2019. No acute events overnight, complaining of right foot pain, denies any fever, chills, nausea, vomiting, diarrhea, constipation or any urinary symptoms. Patient n.p.o. for possible surgical intervention today. Reason For Visit: RIGHT LEG/FOOT CELLULITIS Physical Exam Vital Signs: Temp Pulse Resp BP Pulse Ox 97.5 F 76 16 103/61 95 08/05/19 08:13 08/05/19 08:13 08/05/19 08:13 08/05/19 08:13 08/05/19 08:13 Intake & Output 08/04/19 08/05/19 08/06/19 06:59 06:59 06:59 Intake Total 50 3040 Output Total 200 Balance -150 3040 Weight 92.4 kg General appearance: PRESENT: no acute distress, well-developed, well-nourished Eye exam: PRESENT: conjunctiva pink, EOMI, PERRLA. ABSENT: scleral icterus Respiratory exam: PRESENT: clear to auscultation ron. ABSENT: rales, rhonchi, wheezes Cardiovascular exam: PRESENT: RRR. ABSENT: diastolic murmur, rubs, systolic m urmur Vascular exam: PRESENT: normal capillary refill GI/Abdominal exam: PRESENT: normal bowel sounds, soft. ABSENT: distended, guarding, mass, organolmegaly, rebound, tenderness Extremities exam: PRESENT: full ROM, other - Right foot lateral aspect swelling, erythema, TTP. Neurovascularly intact.. ABSENT: calf tenderness, clubbing, pedal edema Neurological exam: PRESENT: alert, awake, oriented to person, oriented to place, oriented to time, oriented to situation, CN II-XII grossly intact. ABSENT: motor sensory deficit Results Laboratory Results: 08/04/19 11:15 08/04/19 11:15 08/04/19 08/04/19 08/04/19 11:15 17:50 17:50 VBG pH 7.39 VBG pCO2 53.4 VBG HCO3 31.9 VBG Base Excess 4.9 Sodium 141.6 Potassium 4.5 Chloride 100 Carbon Dioxide 29 Anion Gap 13 BUN 23 H Creatinine 1.37 H Est GFR ( Amer) > 60 Glucose 99 Lactic Acid 1.0 Uric Acid 8.8 H Calcium 10.1 Total Bilirubin 1.1 AST 43 Alkaline Phosphatase 65 Total Protein 7.8 Albumin 4.1 Impressions: Venous Doppler Study 08/04/19 00:00 IMPRESSION: No evidence for DVT in the right lower extremity. Foot X-Ray 08/04/19 12:21 IMPRESSION: 1. Thin 4.5 mm radiopaque foreign body that projects dorsal to the 3rd proximal phalanx. 2. Soft tissue swelling along the dorsal aspect of the midfoot. Chest X-Ray 08/04/19 17:19 IMPRESSION: NO ACUTE RADIOGRAPHIC FINDING IN THE CHEST. Assessment and Plan - Diagnosis (1) Cellulitis of right lower extremity Is this a current diagnosis for this admission?: Yes Plan: Mild Improvent. Venous Doppler negative for DVT. Day 2 IV antibiotics. Day 2 IV vancomycin. Day 2 IV cefepime. Cultures no growth so far. Afebrile. Continue empiric IV antibiotics. Surgery consulted. Possible surgical intervention today. Follow-up surgery recommendations. (2) Hypertension Is this a current diagnosis for this admission?: Yes Plan: Normotensive. Euvolemic. Restart home meds. Adjust meds as needed. Follow-up with PCP. (3) Foreign body in right foot Qualifiers: Encounter type: initial encounter Qualified Code(s): S90.851A - Superficial foreign body, right foot, initial encounter Is this a current diagnosis for this admission?: Yes Plan: Patient denies any puncture wounds. No skin alteration of the right foot based on physical examination. X-ray positive for 0.5 mm radiopaque foreign body that projects dorsal to the third proximal phalanx. Venous Doppler negative for DVT. Surgery consulted. Recommendation pending. (4) Hypothyroidism Is this a current diagnosis for this admission?: Yes Plan: Start home meds. Outpatient PCP follow-up. (5) Seizure disorder Is this a current diagnosis for this admission?: Yes Plan: No recurrence of seizure while inpatient. Seizure precautions. Restart home meds. Outpatient PCP follow-up
--- NOTE | 2019-08-05 13:19 | RADIOLOGY REPORT (SQ) ---
EXAM DESCRIPTION: U/S EXTREMITY NONVASCULAR COMP COMPLETED DATE/TIME: 08/05/2019 12:36 pm REASON FOR STUDY: POSSIBLE ABCESS COMPARISON: AP, lateral, oblique views of the right foot from 08/04/2019. TECHNIQUE: Dynamic and static grayscale and color Doppler images of the left foot were obtained. LIMITATIONS: None. FINDINGS: There is extensive subcutaneous edema along the dorsum of the foot with evidence of hypere jamir on color Doppler. On the sagittal cine images there is a linear echogenic structure that measure s up to 2.2 mm in craniocaudal diameter that could represent the foreign body described on the correl ative radiograph from 08/04/2019. There is no abscess. IMPRESSION: Extensive subcutaneous edema with hyperemia and a foreign body as detailed above. There is no abscess. COMMENT: These findings were discussed with CLAU HUTSON MD at13:12 on 08/05/2019. TECHNICAL DOCUMENTATION: JOB ID: [id number] [employer]- All Rights Reserved Reading location - IP/workstation name: [email or web address]
[2019-08-05 13:43] LABS: ABSOLUTE EOSINOPHILS # (AUTO) 0.2 10^3/uL (0.0-0.6); ABSOLUTE LYMPHOCYTES (AUTO) 1.3 10^3/uL (0.5-4.7); ABSOLUTE MONOCYTES (AUTO) 0.9 10^3/uL (0.1-1.4); ABSOLUTE NEUT (AUTO) 5.2 10^3/uL (1.7-8.2); BASOPHILS % (AUTO) 0.5 % (0-2); HEMATOCRIT 44.6 % (37.9-51.0); LYMPHOCYTES % (AUTO) 16.8 % (13-45); MEAN CORPUSCULAR HEMOGLOBIN 31.9 pg (27.0-33.4); MEAN CORPUSCULAR HGB CONC 33.7 g/dL (32.0-36.0); MEAN CORPUSCULAR VOLUME 95 fl (80-97); MONOCYTES % (AUTO) 11.8 % (3-13); PLATELET COUNT 253 10^3/uL (150-450); RED BLOOD COUNT 4.71 10^6/uL (4.35-5.55); RED CELL DISTRIBUTION WIDTH 13.8 % (11.5-14.0); SEGMENTED NEUTROPHILS % (AUTO) 68.9 % (42-78); TOTAL CELLS COUNTED % (AUTO) 100 %; WHITE BLOOD COUNT 7.5 10^3/uL (4.0-10.5)
--- NOTE | 2019-08-05 16:05 | PDOC PROGRESS REPORT ---
Subjective Progress Note for:: 08/05/19 Subjective:: When standing has severe right foot pain. Reason For Visit: RIGHT LEG/FOOT CELLULITIS Physical Exam Vital Signs: Temp Pulse Resp BP Pulse Ox 97.8 F 94 20 137/78 H 93 08/05/19 12:32 08/05/19 12:32 08/05/19 12:32 08/05/19 12:32 08/05/19 12:32 Intake & Output 08/04/19 08/05/19 08/06/19 06:59 06:59 06:59 Intake Total 50 3040 Output Total 200 Balance -150 3040 Weight 92.4 kg General appearance: PRESENT: no acute distress, cooperative Respiratory exam: PRESENT: clear to auscultation ron Cardiovascular exam: PRESENT: RRR Pulses: PRESENT: +2 pedal pulses bilateral Extremities exam: PRESENT: other - Right foot diffusely swollen especially at the dorsum distally and mid with erythema and induration and tenderness. No fluctuance. The process involving most of the right foot dorsally. I have examined the patient this morning and again this afternoon after his radiologic studies, and the foot appears unchanged. No breaks in the skin noted. Results Laboratory Results: 08/05/19 13:34 08/04/19 11:15 08/04/19 08/04/19 08/05/19 17:50 17:50 13:34 WBC 7.5 RBC 4.71 Hgb 15.0 Hct 44.6 MCV 95 MCH 31.9 MCHC 33.7 RDW 13.8 Plt Count 253 Seg Neutrophils % 68.9 VBG pH 7.39 VBG pCO2 53.4 VBG HCO3 31.9 VBG Base Excess 4.9 Lactic Acid 1.0 Impressions: Venous Doppler Study 08/04/19 00:00 IMPRESSION: No evidence for DVT in the right lower extremity. Foot X-Ray 08/04/19 12:21 IMPRESSION: 1. Thin 4.5 mm radiopaque foreign body that projects dorsal to the 3rd proximal phalanx. 2. Soft tissue swelling along the dorsal aspect of the midfoot. Chest X-Ray 08/04/19 17:19 IMPRESSION: NO ACUTE RADIOGRAPHIC FINDING IN THE CHEST. Extremity Ultrasound 08/05/19 00:00 IMPRESSION: Extensive subcutaneous edema with hyperemia and a foreign body as detailed above. There is no abscess. Assessment & Plan - Diagnosis (1) Foreign body in right foot Qualifiers: Encounter type: initial encounter Qualified Code(s): S90.851A - Superficial foreign body, right foot, initial encounter Is this a current diagnosis for this admission?: Yes Plan: With associated right foot cellulitis, severe. Uncertain whether this foreign body is responsible for his infection but difficult to dismiss this foreign body is pure coincidence. I have reviewed the ultrasound with the radiologist and there is quite a bit of soft tissue edema but no discrete abscess. There is 1 area on ultrasonography that has a very straight foreign body appearing area in the soft tissue consistent with a possible splinter. Although patient does not give a distinct history of a splinter trauma, [place]. There is a definite possibility that he did have a spl inter into his foot that has now become a nidus for infection. I have had a long discussion with the patient about risk and benefits of surgical exploration including risk of adjacent structure injury and bleeding and worsening of the infection and poor wound healing. However with all of my concerns about the possibility of a foreign body being the nidus of his infection, and him still having significant pain with no real visible improvement on antibiotics other than diminished white blood cell count, I believe that surgical exploration now is a reasonable option. Patient wants to proceed with surgery tonight. I will plan to do this procedure with fluoroscopy since this foreign body was clearly visible visible on x-rays. - Time Time Spent with patient: 15-24 minutes Level of Care: MEDICAL
[2019-08-05] MEDS ORDERED: LIDOCAINE 2% INJ (20 MG/ML) 20 ML MDV ONE (22:37)
[2019-08-05] MEDS ORDERED: ROPIVACAINE HCL 0.5% INJ/PF (5 MG/1 ML) 30 ML SDV ONE (22:37)
[2019-08-05] MEDS ORDERED: NORMAL SALINE 1000 ML 1,000 ML IV PRN (22:38)
[2019-08-05] MEDS ORDERED: PROPOFOL INJ 200 MG/20 ML VIAL IV ONE (23:08)
[2019-08-05] MEDS ORDERED: MIDAZOLAM 2 MG/2 ML INJ ONE (23:08)
[2019-08-05] MEDS ORDERED: BUPIVACAINE HCL 0.25 % INJ/PF (2.5 MG/1 ML) 30 ML VIAL ONE (23:23)
[2019-08-05] MEDS ORDERED: DIPHENHYDRAMINE HCL 50 MG/ML VIAL IV PRN (23:32)
[2019-08-05] MEDS ORDERED: FENTANYL CITRATE INJ/PF 100 MCG/2 ML AMPUL IV PRN ×3 (23:32)
[2019-08-05] MEDS ORDERED: ONDANSETRON HCL INJ/PF 4 MG/2 ML SDV IV PRN (23:32)
[2019-08-05] MEDS ORDERED: MEPERIDINE HCL/PF INJ 25 MG/1 ML DISP.SYRIN IV PRN (23:32)
--- NOTE | 2019-08-06 00:08 | Operative Report ---
Operative Report DATE OF SURGERY: 08/06/19 PREOPERATIVE DIAGNOSIS: Right foot foreign body with associated infection POSTOPERATIVE DIAGNOSIS: Right foot foreign body. Cellulitis. OPERATION: Right foot foreign body removal under fluoroscopic guidance. SURGEON: CLAU HUTSON ANESTHESIA: Other - Regional block TISSUE REMOVED OR ALTERED: Foreign body removed. COMPLICATIONS: None ESTIMATED BLOOD LOSS: Minimal INTRAOPERATIVE FINDINGS: Metallic thin needlelike foreign body at the distal right foot near the third metatarsal phalangeal joint. No pus encountered. Incision made overlying the mid dorsal foot demonstrated edema with no pus. PROCEDURE: Informed consent was obtained. Patient was brought to the operating room. Regional block was performed. Patient's right foot was prepped and draped in usual sterile fashion. Fluoroscopy was performed demonstrating a linear thin foreign body near the third metatarsal phalangeal joint. A longitudinally oriented incision was made near this foreign body and dissection was carried down locating the foreign body using fluoroscopic guidance. This metallic thin needlelike foreign body was removed. I encountered no pus around this area. There was edema. I made another incision at the mid dorsal foot region to make sure that we were not missing any pus or necrotizing fasciitis. There was no pus encountered and no evidence of necrotizing fasciitis on exploration. Both of these wounds were packed with gauze. Patient tolerated procedure well with no apparent complications and was taken to the recovery area in stable condition. The metallic foreign body was submitted to pathology for gross interpretation only. There was no fluid encountered to swabbed for Gram stain and culture.
[2019-08-06] MEDS: VANCOMYCIN HCL 750 MG in DEXTROSE 5%-WATER 250 ML IV SCH ×2 (05:39→17:52)
[2019-08-06] MEDS: LEVOTHYROXINE SODIUM 0.05 MG TABLET PO SCH (05:39)
[2019-08-06] MEDS: KETOROLAC TROMETHAMINE INJ/PF 30 MG/1 ML SDV IV PRN (05:41)
[2019-08-06 07:22] LABS: ABSOLUTE BASOPHILS # (AUTO) 0.1 10^3/uL (0.0-0.2); ABSOLUTE EOSINOPHILS # (AUTO) 0.1 10^3/uL (0.0-0.6); ABSOLUTE LYMPHOCYTES (AUTO) 0.9 10^3/uL (0.5-4.7); ABSOLUTE MONOCYTES (AUTO) 0.9 10^3/uL (0.1-1.4); BASOPHILS % (AUTO) 0.9 % (0-2); HEMATOCRIT 43.6 % (37.9-51.0); HEMOGLOBIN 14.8 g/dL (13.5-17.0); MEAN CORPUSCULAR HGB CONC 33.8 g/dL (32.0-36.0); MEAN CORPUSCULAR VOLUME 95 fl (80-97); MONOCYTES % (AUTO) 13.1 % (3-13); PLATELET COUNT 257 10^3/uL (150-450); RED BLOOD COUNT 4.61 10^6/uL (4.35-5.55); RED CELL DISTRIBUTION WIDTH 13.5 % (11.5-14.0); TOTAL CELLS COUNTED % (AUTO) 100 %
[2019-08-06 07:49] LABS: ALBUMIN 3.1 g/dL (3.5-5.0); ALKALINE PHOSPHATASE 46 U/L (38-126); ANION GAP 8 (5-19); ASPARTATE AMINO TRANSFERASE 43 U/L (17-59); BILIRUBIN,DIRECT 0.1 mg/dL (0.0-0.4); BILIRUBIN,TOTAL 0.4 mg/dL (0.2-1.3); BLOOD UREA NITROGEN 23 mg/dL (7-20); CALCIUM 9.3 mg/dL (8.4-10.2); CARBON DIOXIDE 25 mmol/L (22-30); CHLORIDE 106 mmol/L (98-107); GLUCOSE 135 mg/dL (75-110); TOTAL PROTEIN 6.4 g/dL (6.3-8.2)
--- NOTE | 2019-08-06 08:42 | RADIOLOGY REPORT (SQ) ---
EXAM DESCRIPTION: NO CHG FLUORO; FOOT RIGHT 2 VIEWS COMPLETED DATE/TIME: 08/05/2019 11:58 pm REASON FOR STUDY: FB REMOVAL RIGHT FOOT L03.115 CELLULITIS OF RIGHT LOWER LIMB COMPARISON: 08/04/2019 radiographs. FLUOROSCOPY TIME: 2.4 minutes 4 images saved to PACS. TECHNIQUE: Intra-operative images acquired during surgical procedure to evaluate progress. NUMBER OF IMAGES: 4 LIMITATIONS: None. FINDINGS: 4 images reveal apparent retrieval of foreign body. Correlate with operative note. IMPRESSION: IMAGE(S) OBTAINED DURING PROCEDURE. COMMENT: Quality ID [id number]: Final reports for procedures using fluoroscopy that document radiation exp osure indices, or exposure time and number of fluorographic images (if radiation exposure indices are not available) Please consult full operative report of the attending physician for description of the procedure. TECHNICAL DOCUMENTATION: JOB ID: [id number] [employer]- All Rights Reserved Reading location - IP/workstation name: [email or web address]
--- NOTE | 2019-08-06 08:42 | RADIOLOGY REPORT (SQ) ---
EXAM DESCRIPTION: NO CHG FLUORO; FOOT RIGHT 2 VIEWS COMPLETED DATE/TIME: 08/05/2019 11:58 pm REASON FOR STUDY: FB REMOVAL RIGHT FOOT L03.115 CELLULITIS OF RIGHT LOWER LIMB COMPARISON: 08/04/2019 radiographs. FLUOROSCOPY TIME: 2.4 minutes 4 images saved to PACS. TECHNIQUE: Intra-operative images acquired during surgical procedure to evaluate progress. NUMBER OF IMAGES: 4 LIMITATIONS: None. FINDINGS: 4 images reveal apparent retrieval of foreign body. Correlate with operative note. IMPRESSION: IMAGE(S) OBTAINED DURING PROCEDURE. COMMENT: Quality ID [id number]: Final reports for procedures using fluoroscopy that document radiation exp osure indices, or exposure time and number of fluorographic images (if radiation exposure indices are not available) Please consult full operative report of the attending physician for description of the procedure. TECHNICAL DOCUMENTATION: JOB ID: [id number] [employer]- All Rights Reserved Reading location - IP/workstation name: [email or web address]
[2019-08-06] MEDS: PANTOPRAZOLE SODIUM 20 MG TABLET.DR PO SCH (09:11)
[2019-08-06] MEDS: AMLODIPINE BESYLATE 10 MG TABLET PO SCH (11:49)
--- NOTE | 2019-08-06 11:49 | PDOC PROGRESS REPORT ---
Subjective Progress Note for:: 08/06/19 Subjective:: SHARAD EVANS is a 68 year old male with a past medical history of hypertension, seizure disorder, Crohn's disease not on therapy, hyperlipidemia, and HERMAN on CPAP who presented with right leg and right foot swelling. Patient says that he woke up 3 days ago and noticed swelling and redness on his right foot. He says that this has progressed and he has noted that his right leg is slightly more swollen than his left. He complains of minimal tenderness on the right foot. He does report that he has noticed the erythema on the distal part of the right foot is more prominent in the past 2 days. He denies fever or chills. Foot x-ray in the ER shows a retained foreign body on the right foot. Surgery was consulted in the ER. No open wounds or lesions noted. Patient denies any recent trauma or insect bite or instrumentation on the right foot. 08/05/2019. No acute events overnight, complaining of right foot pain, denies any fever, chills, nausea, vomiting, diarrhea, constipation or any urinary symptoms. Patient n.p.o. for possible surgical intervention today. 08/06/2019. No acute events overnight. Patient is status post removal of metallic needlelike foreign body at the distal right foot near the third metatarsal phalangeal joint by surgery, reporting improvement of his left foot pain, denies any fever, chills, nausea, vomiting, diarrhea, constipation or any urinary symptoms. P.o. tolerant. Having normal bowel and bladder movements. Reason For Visit: RIGHT LEG/FOOT CELLULITIS Physical Exam Vital Signs: Temp Pulse Resp BP Pulse Ox 98.1 F 77 20 128/70 H 96 08/06/19 08:00 08/06/19 08:00 08/06/19 08:00 08/06/19 08:00 08/06/19 08:00 Intake & Output 08/05/19 08/06/19 08/07/19 06:59 06:59 06:59 Intake Total 50 3590 250 Output Total 200 854 Balance -150 2736 250 Weight 92.4 kg 93 kg General appearance: PRESENT: no acute distress, well-developed, well-nourished Head exam: PRESENT: atraumatic, normocephalic Neck exam: ABSENT: carotid bruit, JVD, lymphadenopathy, thyromegaly Respiratory exam: PRESENT: clear to auscultation ron. ABSENT: rales, rhonchi, wheezes Cardiovascular exam: PRESENT: RRR. ABSENT: diastolic murmur, rubs, systolic murmur GI/Abdominal exam: PRESENT: normal bowel sounds, soft. ABSENT: distended, guarding, mass, organolmegaly, rebound, tenderness Extremities exam: PRESENT: full ROM, other - 2 vertical incisions at the plantar surface of the right foot, no sign of purulent discharge. Neurovascularly intact. Edema improving.. ABSENT: calf tenderness, clubbing, pedal edema Neurological exam: PRESENT: alert, awake, oriented to person, oriented to place, oriented to time, oriented to situation, CN II-XII grossly intact. ABSENT: motor sensory deficit Results Laboratory Results: 08/06/19 06:30 08/06/19 06:30 08/05/19 08/06/19 08/06/19 13:34 06:30 06:30 WBC 7.5 7.0 RBC 4.71 4.61 Hgb 15.0 14.8 Hct 44.6 43.6 MCV 95 95 MCH 31.9 32.0 MCHC 33.7 33.8 RDW 13.8 13.5 Plt Count 253 257 Seg Neutrophils % 68.9 71.0 Sodium 139.2 Potassium 4.0 Chloride 106 Carbon Dioxide 25 Anion Gap 8 BUN 23 H Creatinine 1.29 H Est GFR ( Amer) > 60 Glucose 135 H Calcium 9.3 Magnesium 2.0 Total Bilirubin 0.4 AST 43 Alkaline Phosphatase 46 Total Protein 6.4 Albumin 3.1 L 08/04/19 14:13 Blood Blood Culture (PCR) - Final Staphylococcus Species Impressions: Venous Doppler Study 08/04/19 00:00 IMPRESSION: No evidence for DVT in the right lower extremity. Chest X-Ray 08/04/19 17:19 IMPRESSION: NO ACUTE RADIOGRAPHIC FINDING IN THE CHEST. Extremity Ultrasound 08/05/19 00:00 IMPRESSION: Extensive subcutaneous edema with hyperemia and a foreign body as detailed above. There is no abscess. Fluoroscopy 08/05/19 00:00 IMPRESSION: IMAGE(S) OBTAINED DURING PROCEDURE. Foot X-Ray 08/05/19 00:00 IMPRESSION: IMAGE(S) OBTAINED DURING PROCEDURE. Assessment and Plan - Diagnosis (1) Cellulitis of right lower extremity Is this a current diagnosis for this admission?: Yes Plan: Mild Improvent. Venous Doppler negative for DVT. Day 3 IV antibiotics. Day 3 IV vancomycin. Day 3 IV cefepime. Cultures no growth so far. Afebrile. Continue empiric IV antibiotics. Surgery consulted. Possible surgical intervention today. Follow-up surgery recommendations. (2) Hypertension Is this a current diagnosis for this admission?: Yes Plan: Normotensive. Euvolemic. Restart home meds. Adjust meds as needed. Follow-up with PCP. (3) Foreign body in right foot Qualifiers: Encounter type: initial encounter Qualified Code(s): S90.851A - Superficial foreign body, right foot, initial encounter Is this a current diagnosis for this admission?: Yes Plan: Patient denies any puncture wounds. Status post removal of metallic needlelike foreign body at the distal right foot near the third metatarsal phalangeal joint by surgery. X-ray positive for 0.5 mm radiopaque foreign body that projects dorsal to the third proximal phalanx. Venous Doppler negative for DVT. Surgery following. Recommendations noted. (4) Hypothyroidism Is this a current diagnosis for this admission?: Yes Plan: Start home meds. Outpatient PCP follow-up. (5) Seizure disorder Is this a current diagnosis for this admission?: Yes Plan: No recurrence of seizure while inpatient. Seizure precautions. Restart home meds. Outpatient PCP follow-up (6) Gram-positive bacteremia Is this a current diagnosis for this admission?: Yes Plan: Blood cultures from admission 1 out of 2 bottles growing gram-positive cocci's, pending sensitivity. Repeat blood cultures negative x24 hours. This is likely contamination. Repeat blood cultures. Continue empiric IV antibiotics, follow-up cultures.
[2019-08-06] MEDS: LOSARTAN POTASSIUM 50 MG TABLET PO SCH (11:50)
[2019-08-06] MEDS: ATORVASTATIN CALCIUM 40 MG TABLET PO SCH (11:50)
[2019-08-06] MEDS: OMEGA-3 ACID ETHYL ESTERS 1 GM CAPSULE PO SCH (11:56)
[2019-08-06] MEDS: HEPARIN SOD (PORCINE) 5,000 UNIT/ML 1 ML VIAL SUBCUT SCH ×2 (11:57→22:20)
[2019-08-06] MEDS: OXYCODONE-ACETAMINOPHEN 5-325 MG TABLET PO PRN ×2 (11:57→18:41)
[2019-08-06] MEDS: MODAFINIL 100 MG TABLET PO SCH (11:58)
[2019-08-06] MEDS: CEFEPIME 1 GM/D5W RTU 1 GM/50 ML RTUPB IV SCH ×2 (12:00→22:20)
[2019-08-06] MEDS: ASPIRIN 325 MG TABLET PO SCH (12:00)
[2019-08-06] MEDS: DIVALPROEX SODIUM 250 MG TAB.SR.24H PO SCH ×2 (12:35→22:21)
[2019-08-06] MEDS: HYDROCHLOROTHIAZIDE 25 MG TABLET PO SCH (12:37)
--- NOTE | 2019-08-06 16:10 | PDOC PROGRESS REPORT ---
Subjective Progress Note for:: 08/06/19 Reason For Visit: RIGHT LEG/FOOT CELLULITIS Physical Exam Vital Signs: Temp Pulse Resp BP Pulse Ox 97.9 F 76 16 126/72 H 94 08/06/19 11:22 08/06/19 11:22 08/06/19 11:22 08/06/19 11:22 08/06/19 11:22 Intake & Output 08/05/19 08/06/19 08/07/19 06:59 06:59 06:59 Intake Total 50 3590 1772 Output Total 200 854 150 Balance -150 2736 1622 Weight 92.4 kg 93 kg Results Laboratory Results: 08/06/19 06:30 08/06/19 06:30 08/06/19 08/06/19 06:30 06:30 WBC 7.0 RBC 4.61 Hgb 14.8 Hct 43.6 MCV 95 MCH 32.0 MCHC 33.8 RDW 13.5 Plt Count 257 Seg Neutrophils % 71.0 Sodium 139.2 Potassium 4.0 Chloride 106 Carbon Dioxide 25 Anion Gap 8 BUN 23 H Creatinine 1.29 H Est GFR ( Amer) > 60 Glucose 135 H Calcium 9.3 Magnesium 2.0 Total Bilirubin 0.4 AST 43 Alkaline Phosphatase 46 Total Protein 6.4 Albumin 3.1 L 08/04/19 14:13 Blood Blood Culture (PCR) - Final Staphylococcus Species Impressions: Venous Doppler Study 08/04/19 00:00 IMPRESSION: No evidence for DVT in the right lower extremity. Chest X-Ray 08/04/19 17:19 IMPRESSION: NO ACUTE RADIOGRAPHIC FINDING IN THE CHEST. Extremity Ultrasound 08/05/19 00:00 IMPRESSION: Extensive subcutaneous edema with hyperemia and a foreign body as detailed above. There is no abscess. Fluoroscopy 08/05/19 00:00 IMPRESSION: IMAGE(S) OBTAINED DURING PROCEDURE. Foot X-Ray 08/05/19 00:00 IMPRESSION: IMAGE(S) OBTAINED DURING PROCEDURE. Assessment & Plan - Diagnosis (1) Cellulitis of right foot Is this a current diagnosis for this admission?: Yes (2) Foreign body in right foot Qualifiers: Encounter type: initial encounter Qualified Code(s): S90.851A - Superficial foreign body, right foot, initial encounter Is this a current diagnosis for this admission?: Yes - Time Time Spent with patient: Less than 15 minutes - Plan Summary Plan Summary: 68-year-old male with a foreign body of the right foot and cellulitis of the right foot. He is status post I&D of the right foot with extraction of the foreign body. His foot is still fairly cellulitic. His packing was removed. There is no purulence identified on examination today. I have recommended that he elevate the foot, higher than the level of the heart. Continue intravenous antibiotics. Will follow.
[2019-08-06 18:25] LABS: VANCOMYCIN,TROUGH 9.4 ug/mL (5.0-20.0)
[2019-08-07 05:09] LABS: ANION GAP 8 (5-19); BLOOD UREA NITROGEN 29 mg/dL (7-20); CALCIUM 9.6 mg/dL (8.4-10.2); CARBON DIOXIDE 28 mmol/L (22-30); CHLORIDE 104 mmol/L (98-107); GLUCOSE 98 mg/dL (75-110); POTASSIUM 4.8 mmol/L (3.6-5.0)
[2019-08-07] MEDS: LEVOTHYROXINE SODIUM 0.05 MG TABLET PO SCH (05:22)
[2019-08-07] MEDS: OXYCODONE-ACETAMINOPHEN 5-325 MG TABLET PO PRN ×2 (05:29→16:06)
[2019-08-07] MEDS ORDERED: VANCOMYCIN HCL 1,000 MG in DEXTROSE 5%-WATER 250 ML IV SCH (06:00)
--- NOTE | 2019-08-07 08:22 | PDOC PROGRESS REPORT ---
Subjective Progress Note for:: 08/07/19 Subjective:: Feels better. Less foot pain. Reason For Visit: RIGHT LEG/FOOT CELLULITIS Physical Exam Vital Signs: Temp Pulse Resp BP Pulse Ox 97.8 F 80 18 126/65 H 97 08/07/19 00:00 08/07/19 00:00 08/07/19 00:00 08/07/19 00:00 08/07/19 00:00 Intake & Output 08/06/19 08/07/19 08/08/19 06:59 06:59 06:59 Intake Total 3590 2503 300 Output Total 854 1525 Balance 2736 978 300 Weight 93 kg 91.2 kg General appearance: PRESENT: no acute distress, cooperative Extremities exam: PRESENT: other - Foot wounds appear clean. Still has diffuse erythema and induration but less with less tenderness as well. Results Laboratory Results: 08/06/19 06:30 08/07/19 04:10 08/06/19 08/07/19 17:45 04:10 Sodium 139.9 Potassium 4.8 Chloride 104 Carbon Dioxide 28 Anion Gap 8 BUN 29 H Creatinine 1.40 H 1.52 H Est GFR ( Amer) > 60 55 L Glucose 98 Calcium 9.6 08/04/19 14:13 Blood Blood Culture (PCR) - Final Staphylococcus Species Impressions: Venous Doppler Study 08/04/19 00:00 IMPRESSION: No evidence for DVT in the right lower extremity. Chest X-Ray 08/04/19 17:19 IMPRESSION: NO ACUTE RADIOGRAPHIC FINDING IN THE CHEST. Extremity Ultrasound 08/05/19 00:00 IMPRESSION: Extensive subcutaneous edema with hyperemia and a foreign body as detailed above. There is no abscess. Fluoroscopy 08/05/19 00:00 IMPRESSION: IMAGE(S) OBTAINED DURING PROCEDURE. Foot X-Ray 08/05/19 00:00 IMPRESSION: IMAGE(S) OBTAINED DURING PROCEDURE. Assessment & Plan - Diagnosis (1) Foreign body in right foot Qualifiers: Encounter type: initial encounter Qualified Code(s): S90.851A - Superficial foreign body, right foot, initial encounter Is this a current diagnosis for this admission?: Yes Plan: Status post removal of foreign body under fluoroscopy. (2) Cellulitis of right foot Is this a current diagnosis for this admission?: Yes Plan: Improving slow but steadily. Recommend another day of IV antibiotics in the hospital. If continued to improve may discharge home tomorrow with p.o. antibiotics. Patient may ambulate but would get physical therapy to evaluate prior to discharge so he does not fall at home. Triple antibiotic ointment to the small open wounds and cover them with Band-Aids at home. Surgery service signing off. Please call us for any problems or concerns. - Time Time Spent with patient: Less than 15 minutes Level of Care: MEDICAL
[2019-08-07] MEDS: ATORVASTATIN CALCIUM 40 MG TABLET PO SCH (09:25)
[2019-08-07] MEDS: PANTOPRAZOLE SODIUM 20 MG TABLET.DR PO SCH (09:25)
[2019-08-07] MEDS: ASPIRIN 325 MG TABLET PO SCH (09:25)
[2019-08-07] MEDS: HYDROCHLOROTHIAZIDE 25 MG TABLET PO SCH (09:25)
[2019-08-07] MEDS: OMEGA-3 ACID ETHYL ESTERS 1 GM CAPSULE PO SCH (09:25)
[2019-08-07] MEDS: MODAFINIL 100 MG TABLET PO SCH (09:25)
[2019-08-07] MEDS: AMLODIPINE BESYLATE 10 MG TABLET PO SCH (09:25)
[2019-08-07] MEDS: LINEZOLID 600 MG TABLET PO SCH ×2 (09:25→21:14)
[2019-08-07] MEDS: LOSARTAN POTASSIUM 50 MG TABLET PO SCH (09:25)
[2019-08-07] MEDS: HEPARIN SOD (PORCINE) 5,000 UNIT/ML 1 ML VIAL SUBCUT SCH ×2 (09:26→21:13)
[2019-08-07] MEDS: DIVALPROEX SODIUM 250 MG TAB.SR.24H PO SCH ×2 (09:26→21:13)
--- NOTE | 2019-08-07 11:34 | PDOC PROGRESS REPORT ---
Subjective Progress Note for:: 08/07/19 Subjective:: SHARAD EVANS is a 68 year old male with a past medical history of hypertension, seizure disorder, Crohn's disease not on therapy, hyperlipidemia, and HERMAN on CPAP who presented with right leg and right foot swelling. Patient says that he woke up 3 days ago and noticed swelling and redness on his right foot. He says that this has progressed and he has noted that his right leg is slightly more swollen than his left. He complains of minimal tenderness on the right foot. He does report that he has noticed the erythema on the distal part of the right foot is more prominent in the past 2 days. He denies fever or chills. Foot x-ray in the ER shows a retained foreign body on the right foot. Surgery was consulted in the ER. No open wounds or lesions noted. Patient denies any recent trauma or insect bite or instrumentation on the right foot. 08/05/2019. No acute events overnight, complaining of right foot pain, denies any fever, chills, nausea, vomiting, diarrhea, constipation or any urinary symptoms. Patient n.p.o. for possible surgical intervention today. 08/06/2019. No acute events overnight. Patient is status post removal of metallic needlelike foreign body at the distal right foot near the third metatarsal phalangeal joint by surgery, reporting improvement of his left foot pain, denies any fever, chills, nausea, vomiting, diarrhea, constipation or any urinary symptoms. P.o. tolerant. Having normal bowel and bladder movements. 08/07/2019. No acute events overnight, patient is complaining of left lower extremity pain however improving compared to yesterday, denies any fever, chills, nausea, vomiting, diarrhea, constipation or any urinary symptoms. Surgery following, recommending another day of IV antibiotics and cardiopulmonary physical therapist apy. Reason For Visit: RIGHT LEG/FOOT CELLULITIS Physical Exam Vital Signs: Temp Pulse Resp BP Pulse Ox 98.0 F 74 12 129/77 H 93 08/07/19 08:00 08/07/19 08:00 08/07/19 08:00 08/07/19 08:00 08/07/19 08:00 Intake & Output 08/06/19 08/07/19 08/08/19 06:59 06:59 06:59 Intake Total 3590 2503 300 Output Total 854 1525 Balance 2736 978 300 Weight 93 kg 91.2 kg General appearance: PRESENT: no acute distress, well-developed, well-nourished Respiratory exam: PRESENT: clear to auscultation ron. ABSENT: rales, rhonchi, wheezes Cardiovascular exam: PRESENT: RRR. ABSENT: diastolic murmur, rubs, systolic murmur GI/Abdominal exam: PRESENT: normal bowel sounds, soft. ABSENT: distended, guarding, mass, organolmegaly, rebound, tenderness Extremities exam: PRESENT: full ROM. ABSENT: calf tenderness, clubbing, pedal edema Neurological exam: PRESENT: alert, awake, oriented to person, oriented to place, oriented to time, oriented to situation, CN II-XII grossly intact. ABSENT: motor sensory deficit Results Laboratory Results: 08/06/19 06:30 08/07/19 04:10 08/06/19 08/07/19 17:45 04:10 Sodium 139.9 Potassium 4.8 Chloride 104 Carbon Dioxide 28 Anion Gap 8 BUN 29 H Creatinine 1.40 H 1.52 H Est GFR ( Amer) > 60 55 L Glucose 98 Calcium 9.6 08/04/19 14:13 Blood Blood Culture (PCR) - Final Staphylococcus Species Impressions: Venous Doppler Study 08/04/19 00:00 IMPRESSION: No evidence for DVT in the right lower extremity. Chest X-Ray 08/04/19 17:19 IMPRESSION: NO ACUTE RADIOGRAPHIC FINDING IN THE CHEST. Extremity Ultrasound 08/05/19 00:00 IMPRESSION: Extensive subcutaneous edema with hyperemia and a foreign body as detailed above. There is no abscess. Fluoroscopy 08/05/19 00:00 IMPRESSION: IMAGE(S) OBTAINED DURING PROCEDURE. Foot X-Ray 08/05/19 00:00 IMPRESSION: IMAGE(S) OBTAINED DURING PROCEDURE. Assessment and Plan - Diagnosis (1) Cellulitis of right lower extremity Is this a current diagnosis for this admission?: Yes Plan: Mild Improvent. Venous Doppler negative for DVT. DC cefepime and vancomycin due to worsening renal function. Switch to linezolid. Day 4 IV antibiotics. Day 1 linezolid. Received 3 days of IV vancomycin. Received 3 days of IV cefepime. Blood culture positive for gram-positive cocci in clusters pending sensitivity. Continue empiric IV antibiotics. (2) Hypertension Is this a current diagnosis for this admission?: Yes Plan: Normotensive. Euvolemic. Restart home meds. Adjust meds as needed. Follow-up with PCP. (3) Foreign body in right foot Qualifiers: Encounter type: initial encounter Qualified Code(s): S90.851A - Superficial foreign body, right foot, initial encounter Is this a current diagnosis for this admission?: Yes Plan: Patient denies any puncture wounds. Status post removal of metallic needlelike foreign body at the distal right foot near the third metatarsal phalangeal joint by surgery. X-ray positive for 0.5 mm radiopaque foreign body that projects dorsal to the third proximal phalanx. Venous Doppler negative for DVT. Surgery following. Recommendations noted. (4) Hypothyroidism Is this a current diagnosis for this admission?: Yes Plan: Start home meds. Outpatient PCP follow-up. (5) Seizure disorder Is this a current diagnosis for this admission?: Yes Plan: No recurrence of seizure while inpatient. Seizure precautions. Restart home meds. Outpatient PCP follow-up (6) Gram-positive bacteremia Is this a current diagnosis for this admission?: Yes Plan: Blood cultures from admission 1 out of 2 bottles growing gram-positive cocci's, pending sensitivity. Repeat blood cultures negative x24 hours. This is likely contamination. Repeat blood cultures. Continue empiric IV antibiotics, follow-up cultures.
[2019-08-07] MEDS: NORMAL SALINE 1000 ML 1,000 ML IV PRN (18:29)
[2019-08-08 06:54] LABS: ANION GAP 7 (5-19); BLOOD UREA NITROGEN 22 mg/dL (7-20); CALCIUM 9.9 mg/dL (8.4-10.2); CARBON DIOXIDE 27 mmol/L (22-30); CHLORIDE 103 mmol/L (98-107); GLUCOSE 87 mg/dL (75-110); POTASSIUM 4.8 mmol/L (3.6-5.0)
[2019-08-08] MEDS: NORMAL SALINE 1000 ML 1,000 ML IV PRN ×2 (07:57→19:42)
[2019-08-08] MEDS: LOSARTAN POTASSIUM 50 MG TABLET PO SCH (09:23)
[2019-08-08] MEDS: ATORVASTATIN CALCIUM 40 MG TABLET PO SCH (09:23)
[2019-08-08] MEDS: HYDROCHLOROTHIAZIDE 25 MG TABLET PO SCH (09:23)
[2019-08-08] MEDS: PANTOPRAZOLE SODIUM 20 MG TABLET.DR PO SCH (09:23)
[2019-08-08] MEDS: LEVOTHYROXINE SODIUM 0.05 MG TABLET PO SCH (09:23)
[2019-08-08] MEDS: HEPARIN SOD (PORCINE) 5,000 UNIT/ML 1 ML VIAL SUBCUT SCH ×2 (09:23→22:33)
[2019-08-08] MEDS: AMLODIPINE BESYLATE 10 MG TABLET PO SCH (09:23)
[2019-08-08] MEDS: OMEGA-3 ACID ETHYL ESTERS 1 GM CAPSULE PO SCH (09:23)
[2019-08-08] MEDS: MODAFINIL 100 MG TABLET PO SCH (09:23)
[2019-08-08] MEDS: LINEZOLID 600 MG TABLET PO SCH ×2 (09:25→22:33)
[2019-08-08] MEDS: DIVALPROEX SODIUM 250 MG TAB.SR.24H PO SCH ×2 (09:25→22:33)
[2019-08-08] MEDS: ASPIRIN 325 MG TABLET PO SCH (10:06)
--- NOTE | 2019-08-08 14:53 | PDOC PROGRESS REPORT ---
Subjective Progress Note for:: 08/08/19 Subjective:: SHARAD EVANS is a 68 year old male with a past medical history of hypertension, seizure disorder, Crohn's disease not on therapy, hyperlipidemia, and HERMAN on CPAP who presented with right leg and right foot swelling. Patient says that he woke up 3 days ago and noticed swelling and redness on his right foot. He says that this has progressed and he has noted that his right leg is slightly more swollen than his left. He complains of minimal tenderness on the right foot. He does report that he has noticed the erythema on the distal part of the right foot is more prominent in the past 2 days. He denies fever or chills. Foot x-ray in the ER shows a retained foreign body on the right foot. Surgery was consulted in the ER. No open wounds or lesions noted. Patient denies any recent trauma or insect bite or instrumentation on the right foot. 08/05/2019. No acute events overnight, complaining of right foot pain, denies any fever, chills, nausea, vomiting, diarrhea, constipation or any urinary symptoms. Patient n.p.o. for possible surgical intervention today. 08/06/2019. No acute events overnight. Patient is status post removal of metallic needlelike foreign body at the distal right foot near the third metatarsal phalangeal joint by surgery, reporting improvement of his left foot pain, denies any fever, chills, nausea, vomiting, diarrhea, constipation or any urinary symptoms. P.o. tolerant. Having normal bowel and bladder movements. 08/07/2019. No acute events overnight, patient is complaining of left lower extremity pain however improving compared to yesterday, denies any fever, chills, nausea, vomiting, diarrhea, constipation or any urinary symptoms. Surgery following, recommending another day of IV antibiotics and travel physical therapist apy. 08/08/2019. No acute events overnight. Left lower extremity pain improving, patient was able to ambulate a little however with pain, denies any fever, chills, nausea, vomiting, diarrhea, constipation or any urinary symptoms. Surgery has signed off however patient has a new positive blood culture pending sensitivity. Possible discharge home tomorrow. Reason For Visit: RIGHT LEG/FOOT CELLULITIS Physical Exam Vital Signs: Temp Pulse Resp BP Pulse Ox 98.6 F 78 18 119/70 95 08/08/19 00:00 08/08/19 00:00 08/08/19 00:00 08/08/19 00:00 08/08/19 00:00 Intake & Output 08/07/19 08/08/19 08/09/19 06:59 06:59 06:59 Intake Total 2503 2378 Output Total 1525 525 Balance 978 1853 Weight 91.2 kg General appearance: PRESENT: no acute distress, obese, well-developed, well- nourished Head exam: PRESENT: atraumatic, normocephalic Eye exam: PRESENT: conjunctiva pink, EOMI, PERRLA. ABSENT: scleral icterus Ear exam: PRESENT: normal external ear exam Mouth exam: PRESENT: moist, tongue midline Neck exam: ABSENT: carotid bruit, JVD, lymphadenopathy, thyromegaly Respiratory exam: PRESENT: clear to auscultation ron. ABSENT: rales, rhonchi, wheezes Cardiovascular exam: PRESENT: RRR. ABSENT: diastolic murmur, rubs, systolic murmur Pulses: PRESENT: normal dorsalis pedis pul Vascular exam: PRESENT: normal capillary refill GI/Abdominal exam: PRESENT: normal bowel sounds, soft. ABSENT: distended, guarding, mass, organolmegaly, rebound, tenderness Rectal exam: PRESENT: deferred Extremities exam: PRESENT: full ROM, tenderness, other - Right foot lateral aspect mild swelling, surgical incisions clean, no sign of discharge or bleedin g. Neurovascularly intact.. ABSENT: calf tenderness, clubbing, pedal edema Neurological exam: PRESENT: alert, awake, oriented to person, oriented to place, oriented to time, oriented to situation, CN II-XII grossly intact. ABSENT: motor sensory deficit Psychiatric exam: PRESENT: appropriate affect, normal mood. ABSENT: homicidal ideation, suicidal ideation Skin exam: PRESENT: dry, intact, warm. ABSENT: cyanosis, rash Results Laboratory Results: 08/06/19 06:30 08/08/19 05:36 08/08/19 05:36 Sodium 137.1 Potassium 4.8 Chloride 103 Carbon Dioxide 27 Anion Gap 7 BUN 22 H Creatinine 1.28 H Est GFR ( Amer) > 60 Glucose 87 Calcium 9.9 08/04/19 14:13 Blood Blood Culture (PCR) - Final Staphylococcus Species 08/04/19 17:50 Blood Blood Culture (PCR) - Final Impressions: Venous Doppler Study 08/04/19 00:00 IMPRESSION: No evidence for DVT in the right lower extremity. Chest X-Ray 08/04/19 17:19 IMPRESSION: NO ACUTE RADIOGRAPHIC FINDING IN THE CHEST. Extremity Ultrasound 08/05/19 00:00 IMPRESSION: Extensive subcutaneous edema with hyperemia and a foreign body as detailed above. There is no abscess. Fluoroscopy 08/05/19 00:00 IMPRESSION: IMAGE(S) OBTAINED DURING PROCEDURE. Foot X-Ray 08/05/19 00:00 IMPRESSION: IMAGE(S) OBTAINED DURING PROCEDURE. Assessment and Plan - Diagnosis (1) Cellulitis of right lower extremity Is this a current diagnosis for this admission?: Yes Plan: Mild Improvent. Venous Doppler negative for DVT. DC cefepime and vancomycin due to worsening renal function. Switch to linezolid. Day 5 IV antibiotics. Day 2 linezolid. Received 3 days of IV vancomycin. Received 3 days of IV cefepime. Blood culture positive for gram-positive cocci in clusters pending sensitivity. Continue empiric IV antibiotics. (2) Hypertension Is this a current diagnosis for this admission?: Yes Plan: Normotensive. Euvolemic. Restart home meds. Adjust meds as needed. Follow-up with PCP. (3) Foreign body in right foot Qualifiers: Encounter type: initial encounter Qualified Code(s): S90.851A - Superficial foreign body, right foot, initial encounter Is this a current diagnosis for this admission?: Yes Plan: Patient denies any puncture wounds. Status post removal of metallic needlelike foreign body at the distal right foot near the third metatarsal phalangeal joint by surgery. X-ray positive for 0.5 mm radiopaque foreign body that projects dorsal to the third proximal phalanx. Venous Doppler negative for DVT. Surgery following. Recommendations noted. (4) Hypothyroidism Is this a current diagnosis for this admission?: Yes Plan: Start home meds. Outpatient PCP follow-up. (5) Seizure disorder Is this a current diagnosis for this admission?: Yes Plan: No recurrence of seizure while inpatient. Seizure precautions. Restart home meds. Outpatient PCP follow-up (6) Gram-positive bacteremia Is this a current diagnosis for this admission?: Yes Plan: Blood cultures from admission 1 out of 2 bottles growing gram-positive cocci's, pending sensitivity. Repeat blood cultures negative x24 hours. This is likely contamination. Repeat blood cultures. Continue empiric IV antibiotics, follow-up cultures.
[2019-08-08] MEDS: KETOROLAC TROMETHAMINE INJ/PF 30 MG/1 ML SDV IV PRN (19:39)
[2019-08-09 05:13] LABS: ABSOLUTE BASOPHILS # (AUTO) 0.1 10^3/uL (0.0-0.2); ABSOLUTE EOSINOPHILS # (AUTO) 0.3 10^3/uL (0.0-0.6); ABSOLUTE LYMPHOCYTES (AUTO) 1.4 10^3/uL (0.5-4.7); ABSOLUTE MONOCYTES (AUTO) 1.1 10^3/uL (0.1-1.4); ABSOLUTE NEUT (AUTO) 4.4 10^3/uL (1.7-8.2); BASOPHILS % (AUTO) 1.1 % (0-2); EOSINOPHILS % (AUTO) 4.1 % (0-6); HEMATOCRIT 42.2 % (37.9-51.0); HEMOGLOBIN 14.4 g/dL (13.5-17.0); LYMPHOCYTES % (AUTO) 19.7 % (13-45); MEAN CORPUSCULAR HEMOGLOBIN 32.3 pg (27.0-33.4); MEAN CORPUSCULAR HGB CONC 34.2 g/dL (32.0-36.0); MEAN CORPUSCULAR VOLUME 94 fl (80-97); MONOCYTES % (AUTO) 14.5 % (3-13); PLATELET COUNT 262 10^3/uL (150-450); RED BLOOD COUNT 4.47 10^6/uL (4.35-5.55); RED CELL DISTRIBUTION WIDTH 13.4 % (11.5-14.0); SEGMENTED NEUTROPHILS % (AUTO) 60.6 % (42-78); TOTAL CELLS COUNTED % (AUTO) 100 %; WHITE BLOOD COUNT 7.3 10^3/uL (4.0-10.5)
[2019-08-09 05:26] LABS: ANION GAP 6 (5-19); BLOOD UREA NITROGEN 25 mg/dL (7-20); CALCIUM 9.6 mg/dL (8.4-10.2); CARBON DIOXIDE 29 mmol/L (22-30); CHLORIDE 102 mmol/L (98-107); GLUCOSE 95 mg/dL (75-110); POTASSIUM 4.7 mmol/L (3.6-5.0)
[2019-08-09] MEDS: LEVOTHYROXINE SODIUM 0.05 MG TABLET PO SCH (05:39)
[2019-08-09] MEDS: ASPIRIN 325 MG TABLET PO SCH (10:43)
[2019-08-09] MEDS: ATORVASTATIN CALCIUM 40 MG TABLET PO SCH (10:43)
[2019-08-09] MEDS: HYDROCHLOROTHIAZIDE 25 MG TABLET PO SCH (10:43)
[2019-08-09] MEDS: AMLODIPINE BESYLATE 10 MG TABLET PO SCH (10:43)
[2019-08-09] MEDS: LOSARTAN POTASSIUM 50 MG TABLET PO SCH (10:43)
[2019-08-09] MEDS: PANTOPRAZOLE SODIUM 20 MG TABLET.DR PO SCH (10:43)
[2019-08-09] MEDS: DIVALPROEX SODIUM 250 MG TAB.SR.24H PO SCH (10:44)
[2019-08-09] MEDS: HEPARIN SOD (PORCINE) 5,000 UNIT/ML 1 ML VIAL SUBCUT SCH (10:44)
[2019-08-09] MEDS: OMEGA-3 ACID ETHYL ESTERS 1 GM CAPSULE PO SCH (10:44)
[2019-08-09] MEDS: MODAFINIL 100 MG TABLET PO SCH (10:44)
[2019-08-09] MEDS: LINEZOLID 600 MG TABLET PO SCH (10:45)
[2019-08-09] MEDS: NORMAL SALINE 1000 ML 1,000 ML IV PRN (10:47)
[2019-08-09 12:35] VITALS: BP 124/78
--- NOTE | 2019-08-11 10:50 | PDOC DISCHARGE SUMMARY ---
Impression - Admit/DC Date/PCP Admission Date/Primary Care Provider: 08/04/19 17:33 Discharge Date: 08/11/19 - Discharge Diagnosis (1) Cellulitis of right lower extremity Is this a current diagnosis for this admission?: Yes (2) Hypertension Is this a current diagnosis for this admission?: Yes (3) Foreign body in right foot Is this a current diagnosis for this admission?: Yes (4) Hypothyroidism Is this a current diagnosis for this admission?: Yes (5) Seizure disorder Is this a current diagnosis for this admission?: Yes (6) Gram-positive bacteremia Is this a current diagnosis for this admission?: Yes - Additional Information Resuscitation Status: Full Code Discharge Diet: As Tolerated Discharge Activity: Activity As Tolerated Referrals: [facility] [Provider Group] - 08/18/19 9:45 am () Prescriptions: Clindamycin HCl [Cleocin 300 mg Capsule] 300 mg PO BID 8 Days #24 capsule Walker [Folding Walker] 1 each MC ASDIR PRN 7 Days #1 each PRN Reason: Home Medications: Amlodipine Besylate [Norvasc 10 mg Tablet] 10 mg PO DAILY 08/04/19 Aspirin [Aspirin 325 mg Tablet] 650 mg PO DAILY 08/04/19 Atorvastatin Calcium [Lipitor 40 mg Tablet] 40 mg PO DAILY 08/04/19 Divalproex Sodium [Depakote Er 250 Mg Tablet] 750 mg PO Q12 08/04/19 Hydrochlorothiazide [Hydrodiuril 25 mg Tablet] 25 mg PO DAILY 08/04/19 Irbesartan [Avapro] 300 mg PO DAILY 08/04/19 Levothyroxine Sodium [Synthroid 0.05 mg Tablet] 0.05 mg PO Q6AM 08/04/19 Modafinil [Provigil] 200 mg PO DAILY 08/04/19 Mcgee-3/Dha/Epa/Fish Oil [Fish Oil 1,000 mg Softgel] 1 each PO DAILY 08/04/19 Omeprazole 20 mg PO QAM 08/04/19 Vitamin E 100 unit PO DAILY 08/04/19 Walker [Folding Walker] 1 each ASDIR PRN 7 Days #1 each 08/09/19 Clindamycin HCl [Cleocin 300 mg Capsule] 300 mg PO BID 8 Days #24 capsule 08/11/19 History of Present Illiness History of Present Illness: SHARAD EVANS is a 68 year old male with a past medical history of hypertension, seizure disorder, Crohn's disease not on therapy, hyperlipidemia, and HERMAN on CPAP who presented with right leg and right foot swelling. Hospital Course Hospital Course: (1) Cellulitis of right lower extremity Improved. Venous Doppler negative for DVT. Initially was started on cefepime and vancomycin and had to be switched to Linezolid due to worsening renal function. Received 7 days IV antibiotics. Received 4 days of linezolid. Received 3 days of IV vancomycin. Received 3 days of IV cefepime. Was discharged on clindaymycin 300 bid for another 6 days. Blood culture 1/4 positive for gram-positive corynebacterium and staph homminis likely contiamination. (2) Hypertension Normotensive. Euvolemic. Restarted on home meds. Adjust meds as needed. Follow-up with PCP. (3) Foreign body in right foot Patient denies any puncture wounds. Status post removal of metallic needlelike foreign body at the distal right foot near the third metatarsal phalangeal joint by surgery. X-ray positive for 0.5 mm radiopaque foreign body that projects dorsal to the third proximal phalanx. Venous Doppler negative for DVT. Surgery was consulted. (4) Hypothyroidism Restarted on home meds. Outpatient PCP follow-up. (5) Seizure disorder No recurrence of seizure while inpatient. Seizure precautions. Restarted home meds. Outpatient PCP follow-up (6) Gram-positive bacteremia Blood culture 1/4 positive for gram-positive corynebacterium and staph homminis likely contiamination. Repeat blood cultures negative As per plan # 1 Physical Exam Vital Signs: Temp Pulse Resp BP Pulse Ox 97.9 F 80 17 124/78 93 08/09/19 14:41 08/09/19 14:41 08/09/19 14:41 08/09/19 14:41 08/09/19 14:41 Intake & Output 08/10/19 08/11/19 08/12/19 06:59 06:59 06:59 Intake Total Balance General appearance: PRESENT: no acute distress, obese, well-developed, well- nourished Head exam: PRESENT: atraumatic, normocephalic Eye exam: PRESENT: conjunctiva pink, EOMI, PERRLA. ABSENT: scleral icterus Ear exam: PRESENT: normal external ear exam Mouth exam: PRESENT: moist, tongue midline Neck exam: ABSENT: carotid bruit, JVD, lymphadenopathy, thyromegaly Respiratory exam: PRESENT: clear to auscultation ron. ABSENT: rales, rhonchi, wheezes Cardiovascular exam: PRESENT: RRR. ABSENT: diastolic murmur, rubs, systolic murmur Pulses: PRESENT: normal dorsalis pedis pul Vascular exam: PRESENT: normal capillary refill GI/Abdominal exam: PRESENT: normal bowel sounds, soft. ABSENT: distended, guarding, mass, organolmegaly, rebound, tenderness Rectal exam: PRESENT: deferred Extremities exam: PRESENT: full ROM. ABSENT: calf tenderness, clubbing, pedal edema Musculoskeletal exam: PRESENT: other - incisions over dorsal aspect of right foot, looks clean, no dischare or tenderness Neurological exam: PRESENT: alert, awake, oriented to person, oriented to place, oriented to time, oriented to situation, CN II-XII grossly intact. ABSENT: motor sensory deficit Psychiatric exam: PRESENT: appropriate affect, normal mood. ABSENT: homicidal ideation, suicidal ideation Skin exam: PRESENT: dry, intact, warm. ABSENT: cyanosis, rash Results Laboratory Results: WBC 7.3 10^3/uL (4.0-10.5) 08/09/19 04:35 RBC 4.47 10^6/uL (4.35-5.55) 08/09/19 04:35 Hgb 14.4 g/dL (13.5-17.0) 08/09/19 04:35 Hct 42.2 % (37.9-51.0) 08/09/19 04:35 MCV 94 fl (80-97) 08/09/19 04:35 MCH 32.3 pg (27.0-33.4) 08/09/19 04:35 MCHC 34.2 g/dL (32.0-36.0) 08/09/19 04:35 RDW 13.4 % (11.5-14.0) 08/09/19 04:35 Plt Count 262 10^3/uL (150-450) 08/09/19 04:35 Lymph % (Auto) 19.7 % (13-45) 08/09/19 04:35 [place] % (Auto) 14.5 % (3-13) H 08/09/19 04:35 Eos % (Auto) 4.1 % (0-6) 08/09/19 04:35 Baso % (Auto) 1.1 % (0-2) 08/09/19 04:35 Absolute Neuts (auto) 4.4 10^3/uL (1.7-8.2) 08/09/19 04:35 Absolute Lymphs (auto) 1.4 10^3/uL (0.5-4.7) 08/09/19 04:35 Absolute Monos (auto) 1.1 10^3/uL (0.1-1.4) 08/09/19 04:35 Absolute Eos (auto) 0.3 10^3/uL (0.0-0.6) 08/09/19 04:35 Absolute Basos (auto) 0.1 10^3/uL (0.0-0.2) 08/09/19 04:35 Seg Neutrophils % 60.6 % (42-78) 08/09/19 04:35 PT 13.1 SEC (11.4-15.4) 08/04/19 11:15 INR 0.99 08/04/19 11:15 VBG pH 7.39 (7.30-7.42) 08/04/19 17:50 VBG pCO2 53.4 mmHg (35-63) 08/04/19 17:50 VBG HCO3 31.9 mmol/L (20-32) 08/04/19 17:50 VBG Base Excess 4.9 mmol/L 08/04/19 17:50 Sodium 136.5 mmol/L (137-145) L 08/09/19 04:35 Potassium 4.7 mmol/L (3.6-5.0) 08/09/19 04:35 Chloride 102 mmol/L (98-107) 08/09/19 04:35 Carbon Dioxide 29 mmol/L (22-30) 08/09/19 04:35 Anion Gap 6 (5-19) 08/09/19 04:35 BUN 25 mg/dL (7-20) H 08/09/19 04:35 Creatinine 1.18 mg/dL (0.52-1.25) 08/09/19 04:35 Est GFR ( Amer) > 60 (>60) 08/09/19 04:35 Est GFR (MDRD) Non-Af > 60 (>60) 08/09/19 04:35 Glucose 95 mg/dL (75-110) 08/09/19 04:35 POC Glucose 92 mg/dL (70-110) 08/07/19 22:21 Lactic Acid 1.0 mmol/L (0.7-2.1) 08/04/19 17:50 Uric Acid 8.8 mg/dL (3.5-8.5) H 08/04/19 11:15 Calcium 9.6 mg/dL (8.4-10.2) 08/09/19 04:35 Magnesium 2.0 mg/dL (1.6-2.3) 08/06/19 06:30 Total Bilirubin 0.4 mg/dL (0.2-1.3) 08/06/19 06:30 Direct Bilirubin 0.1 mg/dL (0.0-0.4) 08/06/19 06:30 Neonat Total Bilirubin Not Reportable 08/06/19 06:30 Neonat Direct Bilirubin Not Reportable 08/06/19 06:30 Neonat Indirect Bili Not Reportable 08/06/19 06:30 AST 43 U/L (17-59) 08/06/19 06:30 ALT 40 U/L (<50) 08/06/19 06:30 Alkaline Phosphatase 46 U/L (38-126) 08/06/19 06:30 Total Protein 6.4 g/dL (6.3-8.2) 08/06/19 06:30 Albumin 3.1 g/dL (3.5-5.0) L 08/06/19 06:30 Time Trough Drawn 1745 08/06/19 17:45 Vancomycin Trough 9.4 ug/mL (5.0-20.0) 08/06/19 17:45 Impressions: Venous Doppler Study 08/04/19 00:00 IMPRESSION: No evidence for DVT in the right lower extremity. Foot X-Ray 08/04/19 12:21 IMPRESSION: 1. Thin 4.5 mm radiopaque foreign body that projects dorsal to the 3rd proximal phalanx. 2. Soft tissue swelling along the dorsal aspect of the midfoot. Chest X-Ray 08/04/19 17:19 IMPRESSION: NO ACUTE RADIOGRAPHIC FINDING IN THE CHEST. Extremity Ultrasound 08/05/19 00:00 IMPRESSION: Extensive subcutaneous edema with hyperemia and a foreign body as detailed above. There is no abscess. Fluoroscopy 08/05/19: IMPRESSION: IMAGE(S) OBTAINED DURING PROCEDURE. Foot X-Ray 08/05/19: IMPRESSION: IMAGE(S) OBTAINED DURING PROCEDURE. Stroke Is this a Stroke Patient?: No Acute Heart Failure - Is this a Heart Failure Patient?: No
== END 2019-08-09 15:00 | disposition home or self-care (01) ==
LOC: ER 11:39 → INTOOBSV 17:33 → EH 17:33 → 5 20:28
PROVIDERS: ADMIT Internal Medicine; ATTEND Internal Medicine
PROC: 0JCQ0ZZ Extirpation of Matter from Right Foot Subcutaneous Tissue and Fascia, Open Approach (ICD-10-PCS; principal; 2019-08-06)
DX: L03.115 Cellulitis of right lower limb (principal); S90.851A Superficial foreign body, right foot, initial encounter; X58.XXXA Exposure to other specified factors, initial encounter; R78.81 Bacteremia; I10 Essential (primary) hypertension; G40.909 Epilepsy, unspecified, not intractable, without status epilepticus; E03.9 Hypothyroidism, unspecified; E78.5 Hyperlipidemia, unspecified; G47.33 Obstructive sleep apnea (adult) (pediatric); Z79.899 Other long term (current) drug therapy; Z79.82 Long term (current) use of aspirin; Z88.0 Allergy status to penicillin
CPT/HCPCS: 93005; 99285; 36415 ×6; 87040 ×2; 82962; 82565; 83735; 84550; 85025 ×4; 85610; 87077; 80048 ×3; 80053 ×2; 87186; 80202; 82803; 83605; 87150 ×26; 88300 ×2; 93971; 71045; 73630; 73620; 76881; 93010; 97530; 97116; 97163; 01470; 10120; G0378 ×7; J2795; J2250; A9270 ×47; J3490 ×6; J1644 ×6; J1885 ×3; J0692 ×4; J7060 ×3; J7030 ×5; J2704; J3370 ×4